=== PATIENT | male | born 1955 | race Caucasian/White ===

== ENCOUNTER → 2018-01-25 | Outpatient (CLI) | payer OTHER ==
[~2018-01-25] MED LIST: [UNRECOGNIZED DRUG - OTHER] PO
[2018-01-25 09:31] LABS: BASO ABS # 0.05 K/uL (0-0.2); EOS % 4.1 %; EOS ABS # 0.21 K/uL (0-0.5); HEMATOCRIT 40.9 % (42-52); HEMOGLOBIN 13.1 g/dL (14.0-18.0); IG# 0.01 K/uL (0.00-0.02); LYMPH % 30.2 %; LYMPH ABS # 1.56 K/uL (1.2-3.4); MEAN CELL VOLUME 87.8 fL (80-100); MEAN CORPUSCULAR HEMOGLOBIN 28.1 pg (25-34); MEAN PLATELET VOLUME 10.6 fL (7.4-10.4); MONO % 13.2 %; MONO ABS # 0.68 K/uL (0.11-0.59); NEUT % 51.3 %; NEUT ABS # 2.66 K/uL (1.4-6.5); PLATELET COUNT 205 K/uL (130-400); RED CELL DISTRIBUTION WIDTH CV 14.4 % (11.5-14.5); RED CELL DISTRIBUTION WIDTH SD 46.1 fL (36.4-46.3); WHITE BLOOD COUNT 5.17 K/uL (4.8-10.8)
[2018-01-25 10:30] LABS: ALBUMIN 3.9 gm/dl (3.4-5.0); ALT/SGPT 36 U/L (12-78); AST/SGOT 24 U/L (15-37); BLOOD UREA NITROGEN 19 mg/dl (7-18); CALCIUM 8.5 mg/dl (8.5-10.1); CARBON DIOXIDE 32 mmol/L (21-32); CREATININE 1.31 mg/dl (0.60-1.40); GLUCOSE 118 mg/dl (70-99); POTASSIUM 3.9 mmol/L (3.5-5.1); SODIUM 142 mmol/L (136-145)
[2018-01-25 10:40] LABS: ALKALINE PHOSPHATASE 68 U/L (45-117); CHOLESTEROL 145 mg/dl (0-200); LDL CHOLESTEROL CALCULATED 83 mg/dl; TOTAL PROTEIN 7.2 gm/dl (6.4-8.2)
== END | disposition home or self-care (01) ==
LOC: C.LAB1850 07:01
PROVIDERS: ATTEND Nurse Practitioner Adult Health
DX: Z13.220 Encounter for screening for lipoid disorders (principal); Z82.3 Family history of stroke; Z12.5 Encounter for screening for malignant neoplasm of prostate; R35.1 Nocturia

== ENCOUNTER 2023-03-26 07:16 | Inpatient (IN) ==
[2023-03-26] MEDS ORDERED: SODIUM CHLORIDE 0.9% 1000ML 1,000 ML IV STA (07:25)
--- NOTE | 2023-03-26 07:34 | Emergency Department Note ---
History of Present Illness General Chief complaint: Confusion Time Seen by Provider: 03/26/23 07:19 Source: patient, EMS and RN notes reviewed Mode of arrival: EMS Limitations: no limitations History of Present Illness This patient is a 68-year-old male who is brought in by EMS after being found by police [place] to the train track [place]. He apparently was confused he does answer all questions appropriately now his blood sugars greater than 500 and when asked him about this he says he does not take his medications because he cannot afford it. He said he fell and could not get up and laid there for he thinks 20 hours. He denies any injury and denies that he hit his head. He denies a loss of conscious no chest pain shortness of breath no recent fever chills or illness no focal numbness or weakness no nausea or vomiting. He feels like he has been drinking fluids is normal he does not drink alcohol or use drugs. He feels as if his mouth feels dry and that seems to be his only complaint at present. Home Medications Medication Instructions Recorded Confirmed Type No Known Home Medications 03/26/23 03/26/23 History Allergies Allergy/AdvReac Type Severity Reaction Status Date / Time primidone [From Mysoline] Allergy Verified 06/12/19 15:58 tamsulosin Allergy Verified 06/12/19 15:58 Past Med/Surg History Social History Smoking Status: Never smoker Second Hand Exposure: No; Do You Dip or Chew Tobacco: No; Tobacco Cessation Education Requested by Patient: No Hx Alcohol Use: Yes Alcohol type: beer Hx Substance Use: No Preferred Language: Welsh Rn Flight Required: No Beliefs That Will Affect Care: None Current Living Situation: Alone Other Information That Helps Us Care for You: No Feels Safe at Home: Yes Safety Concerns: Feels Safe At This Time Assistive Devices: None Immunizations: Past medical historytype 2 diabetes. Does not take medications due to financial issues Social history he drinks occasionally but has not had any recently denies drug use. Review of Systems A total of 10 systems reviewed and were otherwise negative Physical Exam Vital Signs Vital Signs - 24 hr 03/26/23 07:35 03/26/23 07:40 03/26/23 08:06 Temperature 37.1 C Temperature Source Oral Pulse Rate 100 H 105 H 90 Pulse Rate from SpO2 Sensor Respiratory Rate 20 24 Respiratory Effort / Characteristics Non-Labored Spontaneous Respiratory Depth Normal Blood Pressure 128/98 Blood Pressure Mean 108 Pulse Oximetry 99 99 Oxygen Delivery Method Room Air Room Air Sepsis Recent Fever Within 48 Hours No Sepsis New/Unexplained Change in Mental Status N/A Sepsis Action Taken by Nursing No Action Required 03/26/23 07:32 03/26/23 09:39 Temperature Temperature Source Pulse Rate 93 H 95 H Pulse Rate from SpO2 Sensor 96 H Respiratory Rate 16 19 Respiratory Effort / Characteristics Respiratory Depth Blood Pressure 105/59 L Blood Pressure Mean 74 Pulse Oximetry 96 97 Oxygen Delivery Method Room Air Room Air Sepsis Recent Fever Within 48 Hours Sepsis New/Unexplained Change in Mental Status Sepsis Action Taken by Nursing General: Well developed well nourished somewhat disheveled older male who appears alert and orient x3 and in no acute distress, breathing comfortably on room air. Normal speech HEENT: Normal cephalic atraumatic. Pupils are equal round and reactive to light. Extraocular movements are intact. Oropharynx is pink with dry mucous membranes. No swelling of the mouth lips or tongue. Neck: Supple with a midline trachea. No meningeal signs or stiffness, no JVD or bruits. No Stridor. Chest: Clear to auscultation bilaterally. No wheezes or rhonchi. No increased work of breathing. No trauma or crepitus or subcutaneous air Heart: Regular rate and rhythm without murmurs or gallops. Abdomen: Soft nontender, nondistended without rebound guarding or rigidity. No external signs of trauma Extremities: No cyanosis clubbing or edema. No calf tenderness or assymetry Spine/Back. Non tender to palpation. No CVA tenderness Skin: Good turgor without rashes. Neurologic exam: Cranial nerves two through 12 are intact. Motor and sensation are intact and symmetrical throughout. Course Administered Medications Sodium Chloride (Nss 1000ml) 1,000 mls @ 100 mls/hr IV .Q10H [facility] Stop: 04/25/23 11:29 Last Admin: 03/26/23 13:13 Dose: 100 mls/hr Documented By: JOSE MIGUEL Insulin Aspart (Insulin Aspart Per Unit Charge) 0 units SC ACHS OZIEL Stop: 04/25/23 11:59 Last Admin: 03/26/23 13:12 Dose: 8 units Documented By: JOSE MIGUEL Co-signed By: SML Discontinued Medications Sodium Chloride (Nss 1000ml) 1,000 mls @ 999 mls/hr IV .Q1H1M STA Stop: 03/26/23 08:25 Last Infusion: 03/26/23 08:59 Dose: 0 mls/hr Documented By: Admin: 03/26/23 07:40 Dose: 999 mls/hr Documented By: KATHARINE Sodium Chloride (Nss 1000ml) 1,000 mls @ 999 mls/hr IV .Q1H1M ONE Stop: 03/26/23 10:19 Last Infusion: 03/26/23 11:17 Dose: 0 mls/hr Documented By: Admin: 03/26/23 09:40 Dose: 999 mls/hr Documented By: KATHARINE Insulin Glargine (Lantus Per Unit Charge) 15 units SQ ONE ONE Stop: 03/26/23 13:01 Last Admin: 03/26/23 13:12 Dose: 15 units Documented By: JOSE MIGUEL Co-signed By: SML Insulin Human Regular (Novolin-R Insulin Per Unit Charge) 5 units SC NOW STA Stop: 03/26/23 08:48 Last Admin: 03/26/23 08:58 Dose: 5 units Documented By: KATHARINE Co-signed By: MT Insulin Human Regular (Novolin-R Insulin Per Unit Charge) 5 units IV NOW STA Stop: 03/26/23 11:07 Last Admin: 03/26/23 11:18 Dose: 5 units Documented By: KATHARINE Co-signed By: CHARY Pantoprazole Sodium (Pantoprazole 40 Mg Tab) 40 mg PO NOW STA Stop: 03/26/23 10:48 Last Admin: 03/26/23 11:18 Dose: 40 mg Documented By: KATHARINE Medical Decision Making Differential Diagnosis Fall, syncope, diabetic emergency, dehydration, rhabdo, electrolyte or metabolic abnormality, arrhythmia, cardiac disease, anemia Medical Records Attestation: I reviewed the patient's medical records. Home Medications Current Medication List: was personally reviewed by me Laboratory Data Attestation: I reviewed the patient's lab results. 03/26/23 07:40 03/26/23 07:40 Lab Results 03/26/23 03/26/23 03/26/23 Range/Units 07:22 07:29 07:40 WBC 10.57 (4.8-10.8) K/ul RBC 5.56 (4.70-6.10) M/uL Hgb 17.0 (14.0-18.0) g/dl Hct 49.7 (42.0-52.0) % MCV 89.4 (80.0-100.0) fL MCH 30.6 (25.0-34.0) pg MCHC 34.2 (32.0-36.0) g/dL RDW Std Deviation 40.0 (36.4-46.3) fL RDW Coeff of Tamika 12.3 (11.5-14.5) % Plt Count 246 (130-400) K/uL MPV 11.4 (9.4-12.4) fL Immature Gran % (Auto) 0.4 % Neut % (Auto) 83.9 % Lymph % (Auto) 6.1 % [place] % (Auto) 9.2 % Eos % (Auto) 0.0 % Baso % (Auto) 0.4 % Neut # (Auto) 8.88 H (1.40-6.50) K/uL Lymph # (Auto) 0.64 L (1.2-3.4) K/uL [place] # (Auto) 0.97 H (0.11-0.59) K/uL Eos # (Auto) 0.00 (0-0.50) K/uL Baso # (Auto) 0.04 (0-0.2) K/uL Immature Gran # (Auto) 0.04 (0.01-0.20) K/uL PT (9.0-12.0) Seconds INR (0.9-1.1) APTT (21.0-31.0) Seconds PTT Ratio VBG pH (7.36-7.41) VBG pCO2 (38-50) mmHg VBG pO2 mmHg VBG HCO3 mmol/L VBG O2 Saturation % VBG Base Excess mEq/L Sodium (136-145) mmol/L Potassium (3.5-5.1) mmol/L Chloride (98-107) mmol/L Carbon Dioxide (21-32) mmol/L Anion Gap (3-11) BUN (6-23) mg/dl Creatinine (0.6-1.4) mg/dl Est Cr Clr Drug Dosing ml/min Est GFR ( Amer) ml/min Est GFR (Non-Af Amer) ml/min BUN/Creatinine Ratio (10-20) Glucose (70-99(Fasting)) mg/dl POC Glucose 521 H* (70-99) mg/dl Calcium (8.6-10.3) mg/dl Total Bilirubin (0.2-1.0) mg/dl AST (13-39) U/L ALT (7-52) U/L Alkaline Phosphatase (34-104) U/L Total Creatine Kinase (30-223) U/L Troponin I High Sens (0-20) pg/ml Total Protein (6.0-8.3) gm/dl Albumin (3.4-5.0) gm/dl Globulin (2.5-4.0) gm/dl Albumin/Globulin Ratio (0.9-2) Lipase (11-82) U/L TSH (0.300-4.500) uIu/ml Urine Color Urine Appearance (Clear) Urine pH (4.5-7.5) Ur Specific [place] (1.000-1.030) Urine Protein (Negative) Urine Glucose (UA) (Negative) Urine Ketones (Negative) Urine Blood (Negative) Urine Nitrite (Negative) Urine Bilirubin (Negative) Urine Urobilinogen (Negative) Ur Leukocyte Esterase (Negative) Ethyl Alcohol mg/dL < 10.0 (<10.0) mg/dl SARS-CoV-2, RNA, NAAT (NEGATIVE) 03/26/23 03/26/23 03/26/23 Range/Units 07:40 07:40 07:40 WBC (4.8-10.8) K/ul RBC (4.70-6.10) M/uL Hgb (14.0-18.0) g/dl Hct (42.0-52.0) % MCV (80.0-100.0) fL MCH (25.0-34.0) pg MCHC (32.0-36.0) g/dL RDW Std Deviation (36.4-46.3) fL RDW Coeff of Tamika (11.5-14.5) % Plt Count (130-400) K/uL MPV (9.4-12.4) fL Immature Gran % (Auto) % Neut % (Auto) % Lymph % (Auto) % [place] % (Auto) % Eos % (Auto) % Baso % (Auto) % Neut # (Auto) (1.40-6.50) K/uL Lymph # (Auto) (1.2-3.4) K/uL [place] # (Auto) (0.11-0.59) K/uL Eos # (Auto) (0-0.50) K/uL Baso # (Auto) (0-0.2) K/uL Immature Gran # (Auto) (0.01-0.20) K/uL PT 10.3 (9.0-12.0) Seconds INR 0.9 (0.9-1.1) APTT 23.9 (21.0-31.0) Seconds PTT Ratio 0.8 VBG pH 7.35 L (7.36-7.41) VBG pCO2 47 (38-50) mmHg VBG pO2 33 mmHg VBG HCO3 26 mmol/L VBG O2 Saturation 60.3 % VBG Base Excess -0.2 mEq/L Sodium 140 (136-145) mmol/L Potassium 4.3 (3.5-5.1) mmol/L Chloride 104 (98-107) mmol/L Carbon Dioxide 24 (21-32) mmol/L Anion Gap 12 H (3-11) BUN 25 H (6-23) mg/dl Creatinine 1.27 (0.6-1.4) mg/dl Est Cr Clr Drug Dosing 62.0 ml/min Est GFR ( Amer) 66.4 ml/min Est GFR (Non-Af Amer) 57.3 ml/min BUN/Creatinine Ratio 19.7 (10-20) Glucose 556 H* (70-99(Fasting)) mg/dl POC Glucose (70-99) mg/dl Calcium 10.0 (8.6-10.3) mg/dl Total Bilirubin 0.5 (0.2-1.0) mg/dl AST 31 (13-39) U/L ALT 28 (7-52) U/L Alkaline Phosphatase 108 H (34-104) U/L Total Creatine Kinase 726 H (30-223) U/L Troponin I High Sens 16.7 (0-20) pg/ml Total Protein 7.5 (6.0-8.3) gm/dl Albumin 4.3 (3.4-5.0) gm/dl Globulin 3.2 (2.5-4.0) gm/dl Albumin/Globulin Ratio 1.3 (0.9-2) Lipase 54 (11-82) U/L TSH (0.300-4.500) uIu/ml Urine Color Urine Appearance (Clear) Urine pH (4.5-7.5) Ur Specific [place] (1.000-1.030) Urine Protein (Negative) Urine Glucose (UA) (Negative) Urine Ketones (Negative) Urine Blood (Negative) Urine Nitrite (Negative) Urine Bilirubin (Negative) Urine Urobilinogen (Negative) Ur Leukocyte Esterase (Negative) Ethyl Alcohol mg/dL (<10.0) mg/dl SARS-CoV-2, RNA, NAAT (NEGATIVE) 03/26/23 03/26/23 03/26/23 Range/Units 07:40 07:40 07:40 WBC (4.8-10.8) K/ul RBC (4.70-6.10) M/uL Hgb (14.0-18.0) g/dl Hct (42.0-52.0) % MCV (80.0-100.0) fL MCH (25.0-34.0) pg MCHC (32.0-36.0) g/dL RDW Std Deviation (36.4-46.3) fL RDW Coeff of Tamika (11.5-14.5) % Plt Count (130-400) K/uL MPV (9.4-12.4) fL Immature Gran % (Auto) % Neut % (Auto) % Lymph % (Auto) % [place] % (Auto) % Eos % (Auto) % Baso % (Auto) % Neut # (Auto) (1.40-6.50) K/uL Lymph # (Auto) (1.2-3.4) K/uL [place] # (Auto) (0.11-0.59) K/uL Eos # (Auto) (0-0.50) K/uL Baso # (Auto) (0-0.2) K/uL Immature Gran # (Auto) (0.01-0.20) K/uL PT (9.0-12.0) Seconds INR (0.9-1.1) APTT (21.0-31.0) Seconds PTT Ratio VBG pH (7.36-7.41) VBG pCO2 (38-50) mmHg VBG pO2 mmHg VBG HCO3 mmol/L VBG O2 Saturation % VBG Base Excess mEq/L Sodium (136-145) mmol/L Potassium (3.5-5.1) mmol/L Chloride (98-107) mmol/L Carbon Dioxide (21-32) mmol/L Anion Gap (3-11) BUN (6-23) mg/dl Creatinine (0.6-1.4) mg/dl Est Cr Clr Drug Dosing ml/min Est GFR ( Amer) ml/min Est GFR (Non-Af Amer) ml/min BUN/Creatinine Ratio (10-20) Glucose (70-99(Fasting)) mg/dl POC Glucose (70-99) mg/dl Calcium (8.6-10.3) mg/dl Total Bilirubin (0.2-1.0) mg/dl AST (13-39) U/L ALT (7-52) U/L Alkaline Phosphatase (34-104) U/L Total Creatine Kinase (30-223) U/L Troponin I High Sens (0-20) pg/ml Total Protein (6.0-8.3) gm/dl Albumin (3.4-5.0) gm/dl Globulin (2.5-4.0) gm/dl Albumin/Globulin Ratio (0.9-2) Lipase (11-82) U/L TSH 2.118 (0.300-4.500) uIu/ml Urine Color Yellow Urine Appearance Clear (Clear) Urine pH 5.0 (4.5-7.5) Ur Specific [place] 1.040 H (1.000-1.030) Urine Protein Negative (Negative) Urine Glucose (UA) 3+ H (Negative) Urine Ketones 1+ H (Negative) Urine Blood Negative (Negative) Urine Nitrite Negative (Negative) Urine Bilirubin Negative (Negative) Urine Urobilinogen Negative (Negative) Ur Leukocyte Esterase Negative (Negative) Ethyl Alcohol mg/dL (<10.0) mg/dl SARS-CoV-2, RNA, NAAT NEGATIVE (NEGATIVE) Imaging Data Attestation: I personally reviewed and interpreted this imaging study as follows: My Impression: Chest x-rayno acute infiltrate, failure, pneumothorax seen Head CTno hemorrhage or mass effect seen Radiologist's Impression: Chest X-Ray 03/26/23 07:25 SINGLE VIEW CHEST CLINICAL HISTORY: Atypical chest pain. FINDINGS: 2 AP, portable, upright chest radiographs are compared to study dated 09/02/2008. The cardiomediastinal silhouette is unremarkable. The lungs and pleural spaces are clear. No pneumothorax is seen. The bony thorax is grossly intact. IMPRESSION: No active disease in the chest. ACT 112: Negative or not required by law. Electronically signed by: Chuck Smyth M.D. 03/26/2023 8:[address] 03/26/23 07:25 CT head/brain wo con CLINICAL HISTORY: weakness Technique: Contiguous axial CT images of the head were acquired from the base of the skull to the vertex without intravenous contrast administration. Images were viewed in brain, subdural and bone windows. Automated dose lowering techniques and/or adjustment according to patient size were utilized for this exam. Comparison: Comparison is made to CT head 11/03/2007 Findings: Areas of decreased attenuation are present in the periventricular and subcortical white matter bilaterally consistent with small vessel ischemic disease. Generalized cerebral atrophy with commensurate enlargement of the ventricles, sulci, and cisterns is also present. There is no acute intracranial hemorrhage or evidence of acute territorial infarction. No shift of the midline structures, mass effect, or extra-axial abnormalities are shown. Atherosclerotic calcifications are present in the intracranial segments of the internal carotid arteries. Imaged portions of the paranasal sinuses and mastoid air cells are clear. The orbits appear normal. There are no acute fractures of the calvaria or scalp swelling. Old craniotomy changes are noted. Impression: No acute intracranial hemorrhage, no evidence of acute territorial infarction or other acute intracranial disease process. ACT 112: Negative or not required by law. Electronically signed by: Pete Hartman M.D. 03/26/2023 8:31 AM ECG Data Attestation: I personally reviewed and interpreted this ECG as follows: Indication: + weakness Rate (beats per minute): 96 Rhythm: + normal sinus ECG Intervals/blocks: + Normal QRS, + Normal QT and + Normal AK ECG [place]: + Normal ECG ST segments: + Normal ST segments ECG Findings: no PACs or no PVCs Comparison ECG Date: from (09/02/08) Change: no significant change MDM Narrative This patient comes in as described above. Was placed on air sampling and monitoring in room A3 although he is brought in with confusion. he seems to answer questions appropriately at this point. His mouth does appear to be dry his vital signs are otherwise stable he has no fever here and reports no fever at home IV X established was hydrated 1 L IV normal saline bolus. Multiple labs were obtained blood sugar was 521 and therefore I also ordered a VBG. He was felt to be at risk for rhabdo lay after laying on the ground for approximately 20 hours. A urine was ordered as well. He was placed on a air sampling and monitoring. EKG. chest x-ray. and also head CT was obtained given the concern for possible fall/tra brenden/confusion. He was reassessed frequently. He seems to doing much better however his blood sugar is very high so I did give him insulin 5 units subcutameous. His CK is also high at greater than 700 so he may have some mild rhabdomylesis. He has not been taking his medication and not 100% sure of what happened to him last night. I do think he needs to be admitted/observed for further fluids and treatment and evaluation. Continuous cardiac monitoring: An order was placed in EMR for continuous cardiac monitoring: Upon my evaluation patient noted to be normal sinus rhythm with rate of 80 Impression & Plan Hyperglycemia, Weakness, Acute dehydration, Rhabdomyolysis, Lab test negative for COVID-19 virus Discharge Plan Visit Data Chief Complaint: Confusion ED Provider: Candido Tomlinson Discharge Problem: Hyperglycemia, Weakness, Acute dehydration, Rhabdomyolysis, Lab test negative for COVID-19 virus Patient Disposition: Admitted As Inpatient Discharge Instructions Interventions: ED Discharge Assessment Last Done: 03/26/23 11:36
[2023-03-26 08:07] LABS: Basophils # (auto) 0.04 K/uL (0-0.2); Basophils % (auto) 0.4 %; Hematocrit (blood only) 49.7 % (42.0-52.0); Immature Granulocytes # (auto) 0.04 K/uL (0.01-0.20); Immature Granulocytes % (auto) 0.4 %; Lymphocytes # (auto) 0.64 K/uL (1.2-3.4); Lymphocytes % (auto) 6.1 %; Mean Corpuscular Hemoglobin 30.6 pg (25.0-34.0); Mean Corpuscular Hgb Conc 34.2 g/dL (32.0-36.0); Mean Corpuscular Volume 89.4 fL (80.0-100.0); Mean Platelet Volume 11.4 fL (9.4-12.4); Monocytes # (auto) 0.97 K/uL (0.11-0.59); Monocytes % (auto) 9.2 %; Neutrophils # (auto) 8.88 K/uL (1.40-6.50); Neutrophils % (auto) 83.9 %; Platelet Count 246 K/uL (130-400); RDW Coefficient of Variation 12.3 % (11.5-14.5); Red Blood Count 5.56 M/uL (4.70-6.10); White Blood Count 10.57 K/ul (4.8-10.8)
[2023-03-26 08:09] LABS: Base Excess VBG -0.2 mEq/L; HCO3 VBG 26 mmol/L; Oxygen Saturation VBG 60.3 %; PCO2 VBG 47 mmHg (38-50); PO2 VBG 33 mmHg; pH VBG 7.35 (7.36-7.41)
[2023-03-26 08:16] LABS: Appearance Urine Clear (Clear); Bilirubin Urine Negative (Negative); Blood Urine Negative (Negative); Color Urine Yellow; Glucose Urine UA 3+ (Negative); Ketones Urine 1+ (Negative); Leukocyte Esterase Urine Negative (Negative); Nitrite Urine Negative (Negative); Protein Urine Negative (Negative); Urobilinogen Urine Negative (Negative)
--- NOTE | 2023-03-26 08:22 | XRay Report ---
SINGLE VIEW CHEST CLINICAL HISTORY: Atypical chest pain. FINDINGS: 2 AP, portable, upright chest radiographs are compared to study dated 09/02/2008. The cardi omediastinal silhouette is unremarkable. The lungs and pleural spaces are clear. No pneumothorax is s een. The bony thorax is grossly intact. IMPRESSION: No active disease in the chest. ACT 112: Negative or not required by law. Electronically signed by: Chuck Smyth M.D. 03/26/2023 8:20 AM
[2023-03-26 08:28] LABS: Albumin Level 4.3 gm/dl (3.4-5.0); Bilirubin,Total 0.5 mg/dl (0.2-1.0); Potassium 4.3 mmol/L (3.5-5.1)
--- NOTE | 2023-03-26 08:33 | CT Scan Report ---
CT head/brain wo con CLINICAL HISTORY: weakness Technique: Contiguous axial CT images of the head were acquired from the base of the skull to the [place] without intravenous contrast administration. Images were viewed in brain, subdural and bone [facility]. Automated dose lowering techniques and/or adjustment according to patient size were utilized for this exam. Comparison: Comparison is made to CT head 11/03/2007 Findings: Areas of decreased attenuation are present in the periventricular and subcortical white matter bilate rally consistent with small vessel ischemic disease. Generalized cerebral atrophy with commensurate e nlargement of the ventricles, sulci, and cisterns is also present. There is no acute intracranial hem orrhage or evidence of acute territorial infarction. No shift of the midline structures, mass effect, or extra-axial abnormalities are shown. Atherosclerotic calcifications are present in the intracran ial segments of the internal carotid arteries. Imaged portions of the paranasal sinuses and mastoid air cells are clear. The orbits appear normal. There are no acute fractures of the calvaria or scalp swelling. Old craniotomy changes are noted. Impression: No acute intracranial hemorrhage, no evidence of acute territorial infarction or other acute intracra nial disease process. ACT 112: Negative or not required by law. Electronically signed by: Pete Hartman M.D. 03/26/2023 8:31 AM
[2023-03-26 08:42] LABS: INR 0.9 (0.9-1.1); Partial Thromboplastin Ratio 0.8; Partial Thromboplastin Time 23.9 Seconds (21.0-31.0); Prothrombin Time 10.3 Seconds (9.0-12.0)
[2023-03-26] MEDS ORDERED: NovoLIN-R INSULIN PER UNIT CHARGE SC STA (08:47)
[2023-03-26 08:49] LABS: Albumin Globulin Ratio 1.3 (0.9-2); BUN Creatinine Ratio 19.7 (10-20); Est GFR (African American) 66.4 ml/min; Est GFR (Non-African American) 57.3 ml/min; Globulin 3.2 gm/dl (2.5-4.0); Total Protein 7.5 gm/dl (6.0-8.3); Troponin I High Sensitivity 16.7 pg/ml (0-20)
[2023-03-26] MEDS ORDERED: SODIUM CHLORIDE 0.9% 1000ML 1,000 ML IV ONE (09:19)
[2023-03-26] MEDS ORDERED: DEXTROSE 50% 50 ML SYRINGE IV PRN (10:24)
[2023-03-26] MEDS ORDERED: PHARMACY GLYCEMIC MGMT CONSULT PRN (10:24)
[2023-03-26] MEDS ORDERED: GLUCOSE 10 TAB/TUBE PO PRN (10:24)
[2023-03-26] MEDS ORDERED: GLUCAGON FOR INJ 1 MG VIAL SQ PRN (10:24)
[2023-03-26] MEDS ORDERED: CARBOHYDRATES FOR HYPOGLYCEMIA PO PRN (10:24)
[2023-03-26] MEDS ORDERED: GLUCOSE 40% GEL 15 GM TUBE PO PRN (10:24)
--- NOTE | 2023-03-26 10:25 | History & Physical Report ---
Date of Service March 26, 2023 Assessment & Plan (1) Hyperglycemia: Plan: -Admit to med/tele -Currently stable -Found to be hyperglycemic with BSG in the 500's on arrival to the ED -Patient noted to have slight AG of 12 with 1+ ketones in his urine but bicarb is 24 and VBG without significant acidosis -Has been unable to afford medications -S/P 2L NSS and 5 units SQ novolog in the ED -Repeat BSG on admission is 394 -Coordinating with Pharmacy as Glycemic consult has been placed >Will give 5 units IV regular human insulin now >Start q2h BSG checks until his BSg is stable, goal is 110-160 >Start CF of 35 and CR of 12 q2h for now >Pharmacy will adjust lantus dosing later today when they see how he responds to his initial therapy -Will give another 1L NSS now x 1 bag to avoid additional glucose in LR or Normosol -Will obtain repeat BMP, mag, and ABG this afternoon to ensure he is correcting adequately -AM Hgb A1c -Will hold chemical DVT PPX until tomorrow to ensure he is without bleeding with his recent fall and history of intracranial hemorrhage -AM CBC, CMP, Mag, PT/INR (2) Fall: Plan: -Patient fell last evening [place] train [place] -Has some tenderness to palpation over the thoracic spine but otherwise without pain -CT head and CXR negative -Will obtain Xray of the thoracic spine to rule out fracture -PT/OT consults placed (3) Dizziness: Plan: -Patient reports a long history of dizziness with changing positions, was at least partly responsible for his fall yesterday -Denies spinning vision, unilateral hearing loss, or change in baseline tinnitus -CT head negative, no acute focal neuro defects compared to his baseline -Will continue to monitor on tele for arrhythmias, noted to have PVC's on tele -Will obtain TTE and orthostatic vitals -Fall precautions, PT/OT consults (4) Elevated CK: Plan: -Initial CK noted to be 726 -Kidney function appears at baseline -Likely due to be down on the ground for 20+ hours since his fall yesterday -Continue IV hydration, will repeat ck level q6h until it reaches a plateau -Continue to monitor intake/output and renal function (5) Weakness: Plan: -Likely multifactorial including being on the ground for 20+ hours, dehydration, and hyperglycemia -CT head negative for acute findings and CXR without acute sings -No signs/symptoms of acute infection, TSH WNL -Continue to monitor for improvement with adequate hydration and correction of hyperglycemia -PT/OT consults placed (6) Diabetes mellitus type 2, uncontrolled: Plan: -See hyperglycemia -Pharmacy glycemic consult placed (7) Benign familial tremor: Plan: -States it has been getting worse of the past few years -Was previously on a medication but does not remember which one -Will hold medications for tremor at this time until he is stable, could consider starting something tomorrow if BP is stable (8) Benign prostatic hyperplasia with urinary obstruction and other lower urinary tract symptoms: Plan: -Denies current issues with urination -Monitor intake/output q6h for now with prn bladder scan Plan The patient was discussed with Dr. Hernández at the time of the admission History of Present Illness Chief Complaint: Confusion, hyperglycemia Primary Care Provider: AGUILA Sebastian is a 68 year old male with a PMH significant for DM II, GERD, BPH, benign essential tremor, and previous hemorrhagic stroke S/P Craniotomy at [facility] in 2006 who presented to the [facility] ED via EMS after being found down outside, confusion, and hyperglycemia. In the ED vitals were stable. Labs were significant for a lymphopenia of 0.64, glucose of 556, AG of 12 with bicarb of 24, CK of 726, alcohol level < 10, and covid 19 negative. Chest xray was read as "No active disease in the chest.". CT of the head/brain wo con was read as "No acute intracranial hemorrhage, no evidence of acute territorial infarction or other acute intracranial disease process.". Prior to admission the patient was given 5 units SQ regular insulin, given 1L NSS, and started on another 1L NSS. At the time of the exam the patient was sitting in bed in no acute distress, he does not appear confused during my exam. He states that he currently lives in section 8 housing in [place] and has been living there for approximately the past 2 years. he confirms his PMH and states that he has not been on medications as he cannot afford them at this time. He states that he wanted to get fresh air and exercise yesterday so he went for a walk on the [place]. Yesterday evening, while, walking, he went to turn around to start walking back home because it was getting dark. While turning he became dizzy and fell, he denies hitting his head or losing consciousness. He denies having spinning with his vision at this time, he states that he often gets dizzy while changing positions. He states that he became dizzy again earlier in the ED when he got out of bed to use the restroom. He denies having the sensation of unilateral ear fullness or tinnitus with the dizziness. He does have constant ringing in his ears at baseline. We discussed code status, he wishes to be a full code and for his sister to make medical decisions for him if he cannot make them himself. Please refer to Dr. Hernández's attesation for any changes to the treatment Allergies Allergy/AdvReac Type Severity Reaction Status Date / Time rice Allergy Unknown Difficulty Verified 03/27/23 17:03 Breathing primidone [From Mysoline] Allergy Verified 06/12/19 15:58 tamsulosin Allergy Verified 06/12/19 15:58 Home Medications Medication Instructions Recorded Confirmed Type No Known Home Medications 03/26/23 03/26/23 History Past Med/Surg History Social History Smoking Status: Never smoker Second Hand Exposure: No; Do You Dip or Chew Tobacco: No; Hx Alcohol Use: Yes Alcohol type: beer Hx Substance Use: No Preferred Language: Liberian Communication Ability: Effective Chlorinator Required: No Beliefs That Will Affect Care: None Current Living Situation: Alone Feels Safe at Home: Yes Assistive Devices: Cane Review of Systems Review of Systems: All systems reviewed & are unremarkable except as noted in HPI & below Physical Exam Physical Exam: Physical Exam: General: In no acute distress, stated age, chronically ill appearing, poor hygiene, non-toxic appearing HEENT: Normocephalic, atraumatic, no scleral icterus, pupils around round, symmetrical, and reactive to light, moist mucus membranes, trachea midline, no thyromegaly Chest/Pulm: No respiratory distress, symmetrical chest expansion, clear breath sounds throughout Cardiac: regular rate, irregular rhythm, no murmurs noted Abdomen: Negative for ascites and bruising, normoactive bowel sounds, soft, non-tender to palpation throughout Musculoskeletal: No acute signs of trauma on inspection and palpation of the head, neck, cervical spine, lumbar spine, and BL upper/lower extremities, patient with tenderness to palpation over the thoracic spine without signs of crepitus or step offs Extremities: Radial, dorsalis pedis, and posterior tibial pulses are intact and symmetrical, no edema noted in the BL LE's Skin: Warm, dry, no rashes , lesions, or scars noted Neuro: Alert and oriented to person, place, month, year, and president, no focal defects, CN II-XII tested and intact, symmetrical strength in the BL upper and lower extremities, baseline resting tremor noted Psych: No acute distress, calm and cooperative during the exam Results & Data Results & Data Vital Signs (Past 12 Hours) Vital Signs Temp Pulse Resp BP Pulse Ox O2 Del Method 03/26/23 09:39 95 H 19 105/59 L 97 Room Air 03/26/23 07:32 93 H 16 96 Room Air 03/26/23 08:06 90 24 99 Room Air 03/26/23 07:40 37.1 C 105 H 20 128/98 99 Room Air 03/26/23 07:35 100 H Laboratory Results Abnormal lab results 03/26/23 03/26/23 03/26/23 Range/Units 07:22 07:40 07:40 Neut # (Auto) 8.88 H (1.40-6.50) K/uL Lymph # (Auto) 0.64 L (1.2-3.4) K/uL [place] # (Auto) 0.97 H (0.11-0.59) K/uL VBG pH (7.36-7.41) Anion Gap 12 H (3-11) BUN 25 H (6-23) mg/dl Glucose 556 H* (70-99(Fasting)) mg/dl POC Glucose 521 H* (70-99) mg/dl Alkaline Phosphatase 108 H (34-104) U/L Total Creatine Kinase 726 H (30-223) U/L Ur Specific [place] (1.000-1.030) Urine Glucose (UA) (Negative) Urine Ketones (Negative) 03/26/23 03/26/23 03/26/23 Range/Units 07:40 07:40 10:25 Neut # (Auto) (1.40-6.50) K/uL Lymph # (Auto) (1.2-3.4) K/uL [place] # (Auto) (0.11-0.59) K/uL VBG pH 7.35 L (7.36-7.41) Anion Gap (3-11) BUN (6-23) mg/dl Glucose (70-99(Fasting)) mg/dl POC Glucose 394 H* (70-99) mg/dl Alkaline Phosphatase (34-104) U/L Total Creatine Kinase (30-223) U/L Ur Specific [place] 1.040 H (1.000-1.030) Urine Glucose (UA) 3+ H (Negative) Urine Ketones 1+ H (Negative) Diagnostic Findings Chest X-Ray 03/26/23 07:25 SINGLE VIEW CHEST CLINICAL HISTORY: Atypical chest pain. FINDINGS: 2 AP, portable, upright chest radiographs are compared to study dated 09/02/2008. The cardiomediastinal silhouette is unremarkable. The lungs and pleural spaces are clear. No pneumothorax is seen. The bony thorax is grossly intact. IMPRESSION: No active disease in the chest. ACT 112: Negative or not required by law. Electronically signed by: Chuck Smyth M.D. 03/26/2023 8:[address] 03/26/23 07:25 CT head/brain wo con CLINICAL HISTORY: weakness Technique: Contiguous axial CT images of the head were acquired from the base of the skull to the vertex without intravenous contrast administration. Images were viewed in brain, subdural and bone windows. Automated dose lowering techniques and/or adjustment according to patient size were utilized for this exam. Comparison: Comparison is made to CT head 11/03/2007 Findings: Areas of decreased attenuation are present in the periventricular and subcortical white matter bilaterally consistent with small vessel ischemic disease. Generalized cerebral atrophy with commensurate enlargement of the ventricles, sulci, and cisterns is also present. There is no acute intracranial hemorrhage or evidence of acute territorial infarction. No shift of the midline structures, mass effect, or extra-axial abnormalities are shown. Atherosclerotic calcifications are present in the intracranial segments of the internal carotid arteries. Imaged portions of the paranasal sinuses and mastoid air cells are clear. The orbits appear normal. There are no acute fractures of the calvaria or scalp swelling. Old craniotomy changes are noted. Impression: No acute intracranial hemorrhage, no evidence of acute territorial infarction or other acute intracranial disease process. ACT 112: Negative or not required by law. Electronically signed by: Pete Hartman M.D. 03/26/2023 8:31 AM ECG Additional Comments: Normal sinus rhythm Low voltage QRS Borderline ECG When compared with ECG of 02-SEP-2008 17:55, Vent. rate has increased BY 32 BPM Code Status & VTE Plan Code Status Full code VTE Prophylaxis Plan VTE Prophylaxis will be ordered: Yes Supervising Physician Co-Signing Physician Notes During face to face encounter, I obtained a brief physical examination, history of present illness I discussed discharge plan of care with EDMAR [place]. I reviewed above note and agree with it except for the following: Patient admitted with uncontrolled diabetes. Patient has not seen a PCP for over 4 years. Will rehydrate patient and control his diabetes with insulin. Will monitor. PG Care Time/CCT Total # of Minutes Spent Total Time Spent with Patient: Total time spent is greater than 50% in coordination of care (as documented) at patient's floor/unit and/or counseling patient: [place] [address] INT INP/OBS CARE 3/75MIN Patient Type New Medical Decision Making Moderate Complexity Diagnoses Hyperglycemia R73.9 Fall W19.XXXA Dizziness R42 Elevated CK R74.8 Weakness R53.1 Diabetes mellitus type 2, uncontrolled E11.65 Benign familial tremor G25.0 Benign prostatic hyperplasia with urinary obstruction and other lower urinary tract symptoms N40.1; N13.8
[2023-03-26] MEDS ORDERED: INSULIN ASPART PER UNIT CHARGE SC STA (10:47)
[2023-03-26] MEDS ORDERED: PANTOprazole 40 MG TAB PO STA (10:47)
[2023-03-26] MEDS ORDERED: INSULIN ASPART PER UNIT CHARGE SC SCH (11:00)
[2023-03-26] MEDS ORDERED: NovoLIN-R INSULIN PER UNIT CHARGE IV STA (11:06)
[2023-03-26] MEDS ORDERED: SODIUM CHLORIDE 0.9% 1000ML 1,000 ML IV SCH (11:30)
[2023-03-26] MEDS ORDERED: ACETAMINOPHEN 325 MG TAB PO PRN (11:55)
[2023-03-26] MEDS ORDERED: LANTUS PER UNIT CHARGE SQ ONE ×2 (13:00→21:00)
--- NOTE | 2023-03-26 13:06 | Pharmacy Report ---
Pharmacy Glycemic Short Note 2 - Date of Service March 26, 2023 - Glycemic Short BSG Results (Last 24 hours): 03/26/23 03/26/23 03/26/23 07:22 07:40 10:25 Glucose 556 H* POC Glucose 521 H* 394 H* 03/26/23 12:13 Glucose POC Glucose 297 H OUTPATIENT ANTIDIABETIC REGIMEN: * n/a HbA1c ordered for 03/27/23 ASSESSMENT: * TH is a 68 year old male who presented to ED via EMS after being found down outside * Patient reportedly got dizzy and feel while walking along train tracks * His BSG at presentation was 556 mg/dL, anion gap of 12 (however, serum bicarbonate is 24), and pH of 7.35 * Hyperglycemia has improved significantly with two IV regular insulin boluses (5 units x 2) * BSG at present is 297 mg/dL * Diet ordered on admission * Given uncertainty in insulin needs - will give ~0.2 unit/kg initial basal * Will allow for some mild hyperglycemia today and prioritize hypoglycemia prevention PLAN FOR INPATIENT GLYCEMIC CONTROL: * Basal insulin * Lantus 15 units SQ x 1 (~0.2 unit/kg) * Lantus 0-15 units SC HS to provide dose up to weight-based stress of 2 * Bolus insulin * NovoLog per scale ACHS or Q6hrs while NPO * Goal Range: Low 120 mg/dL - High 150 mg/dL * Correction Factor: 20 mg/dL/unit * Nutritional / Prandial insulin per carb ratio of 1 unit per 7 grams CHO consumed * ,04 checks with same parameters
[2023-03-26] MEDS: INSULIN ASPART PER UNIT CHARGE SC SCH ×4 (13:12→23:45)
--- NOTE | 2023-03-26 13:24 | XRay Report ---
THORACIC SPINE 3 VIEWS HISTORY: fall, thoracic back pain COMPARISON: None. FINDINGS: There is no fracture. No subluxation. Paravertebral soft tissues are unremarkable. Mild de generative disc disease throughout the thoracic spine. IMPRESSION: No fracture or subluxation within the thoracic spine. ACT 112: Negative or not required by law. Electronically signed by: Federico Dee M.D. 03/26/2023 1:22 PM
[2023-03-26 14:15] LABS: Base Excess ABG -1.7 mEq/L (-9-1.8); HCO3 ABG 23 mmol/L (19-24); PCO2 ABG 38 mmHg (35-46); PO2 ABG 74 mmHg (80-95); pH ABG 7.39 (7.35-7.45)
[2023-03-26 14:22] LABS: Allen Test POS (Pos)
[2023-03-26 14:53] LABS: BUN Creatinine Ratio 16.9 (10-20); Calcium 8.4 mg/dl (8.6-10.3); Creatinine Clr Calc Pharmacy 60.6 ml/min; Est GFR (African American) 64.5 ml/min; Est GFR (Non-African American) 55.7 ml/min; Potassium 3.7 mmol/L (3.5-5.1)
--- NOTE | 2023-03-26 16:25 | XCELERA ---
[id number]
--- NOTE | 2023-03-26 18:21 | Electrocardiogram Report ---
Test Reason : Blood Pressure : / mmHG Vent. Rate : 096 BPM Atrial Rate : 096 BPM P-R Int : 178 ms QRS Dur : 074 ms QT Int : 328 ms P-R-T Axes : 079 009 050 degrees QTc Int : 414 ms Normal sinus rhythm Low voltage QRS Borderline ECG When compared with ECG of 02-SEP-2008 17:55, Vent. rate has increased BY 32 BPM Confirmed by Terrence Anthony ([id number]) on 03/26/2023 6:21:25 PM Referred By: REFERRED SELF Confirmed By:Ben Anthony
[2023-03-26] MEDS ORDERED: LACTATED RINGER'S 1,000 ML IV SCH (20:30)
[2023-03-26] MEDS ORDERED: LANTUS PER UNIT CHARGE SQ SCH (21:00)
[2023-03-27 02:07] LABS: Albumin Globulin Ratio 1.5 (0.9-2); Albumin Level 3.4 gm/dl (3.4-5.0); BUN Creatinine Ratio 20.4 (10-20); Bilirubin,Total 0.5 mg/dl (0.2-1.0); Calcium 8.1 mg/dl (8.6-10.3); Creatinine Clr Calc Pharmacy 69.7 ml/min; Est GFR (African American) 76.4 ml/min; Globulin 2.2 gm/dl (2.5-4.0); Magnesium 2.1 mg/dl (1.7-2.4); Potassium 3.6 mmol/L (3.5-5.1); Total Protein 5.6 gm/dl (6.0-8.3)
[2023-03-27 04:17] LABS: Basophils # (auto) 0.03 K/uL (0-0.2); Basophils % (auto) 0.4 %; Eosinophils # (auto) 0.18 K/uL (0-0.50); Eosinophils % (auto) 2.6 %; Hematocrit (blood only) 38.7 % (42.0-52.0); Immature Granulocytes # (auto) 0.02 K/uL (0.01-0.20); Immature Granulocytes % (auto) 0.3 %; Lymphocytes # (auto) 1.83 K/uL (1.2-3.4); Mean Corpuscular Hemoglobin 30.7 pg (25.0-34.0); Mean Corpuscular Hgb Conc 33.6 g/dL (32.0-36.0); Mean Corpuscular Volume 91.3 fL (80.0-100.0); Monocytes # (auto) 0.74 K/uL (0.11-0.59); Monocytes % (auto) 10.5 %; Neutrophils # (auto) 4.25 K/uL (1.40-6.50); Neutrophils % (auto) 60.2 %; Platelet Count 159 K/uL (130-400); RDW Coefficient of Variation 12.8 % (11.5-14.5); RDW Standard Deviation 41.5 fL (36.4-46.3); Red Blood Count 4.24 M/uL (4.70-6.10); White Blood Count 7.05 K/ul (4.8-10.8)
[2023-03-27] MEDS: INSULIN ASPART PER UNIT CHARGE SC SCH ×5 (04:21→20:31)
[2023-03-27 07:03] LABS: Estimated Average Glucose 390 mg/dl; Hemoglobin A1C 15.2 % (4.5-5.6)
[2023-03-27] MEDS: PANTOprazole 40 MG TAB PO SCH (07:58)
[2023-03-27] MEDS ORDERED: LANTUS PER UNIT CHARGE SQ ONE ×4 (08:00→21:00)
--- NOTE | 2023-03-27 08:28 | Pharmacy Report ---
Pharmacy Glycemic Short Note 2 - Date of Service March 27, 2023 - Glycemic Short BSG Results (Last 24 hours): 03/26/23 03/26/23 03/26/23 07:40 10:25 12:13 Glucose 556 H* POC Glucose 394 H* 297 H 03/26/23 03/26/23 03/26/23 14:02 16:34 19:58 Glucose 324 H* POC Glucose 276 H 210 H 03/26/23 03/27/23 03/27/23 23:23 01:08 04:00 Glucose 127 H POC Glucose 173 H 111 H 03/27/23 07:38 Glucose POC Glucose 127 H OUTPATIENT ANTIDIABETIC REGIMEN: * n/a HbA1c: 15.2% (03/27/23) ASSESSMENT: 03/27/23: * HbA1c has resulted at 15.2% - given new diabetes diagnosis, will consult CDE for assistance w/ outpatient transition * Excellent BSG downward trend yesterday from 521 to 173 mg/dL * Fasting BSG of 127 mg/dL this morning * Patient received 62 units of insulin (25 units of basal, 10 units of IV regular insulin, and 27 units of prandial/correctional bolus) * Had originally planned to convert to once daily basal to facilitate transition to discharge, however, in light of downward BSG trend will stick with BID basal today to allow for increase/decrease this evening based on today's trend 03/26/23: * TH is a 68 year old male who presented to ED via EMS after being found down outside * Patient reportedly got dizzy and feel while walking [place] train tracks * His BSG at presentation was 556 mg/dL, anion gap of 12 (however, serum bicarbonate is 24), and pH of 7.35 * Hyperglycemia has improved significantly with two IV regular insulin boluses (5 units x 2) * BSG at present is 297 mg/dL * Diet ordered on admission * Given uncertainty in insulin needs - will give ~0.2 unit/kg initial basal * Will allow for some mild hyperglycemia today and prioritize hypoglycemia prevention PLAN FOR INPATIENT GLYCEMIC CONTROL: * Basal insulin * Lantus 10-15 units SC BID today * Consider once daily basal starting tomorrow morning * Bolus insulin * NovoLog per scale ACHS or Q6hrs while NPO * Goal Range: Low 110 mg/dL - High 140 mg/dL * Correction Factor: 25 mg/dL/unit * Nutritional / Prandial insulin per carb ratio of 1 unit per 8 grams CHO consumed
[2023-03-27 16:43] LABS: Hemoglobin 14.9 g/dl (14.0-18.0); Mean Corpuscular Hemoglobin 30.7 pg (25.0-34.0); Mean Corpuscular Hgb Conc 33.9 g/dL (32.0-36.0); Mean Corpuscular Volume 90.7 fL (80.0-100.0); Mean Platelet Volume 11.4 fL (9.4-12.4); Platelet Count 201 K/uL (130-400); RDW Coefficient of Variation 12.8 % (11.5-14.5); RDW Standard Deviation 41.7 fL (36.4-46.3); Red Blood Count 4.85 M/uL (4.70-6.10); White Blood Count 5.66 K/ul (4.8-10.8)
[2023-03-27 17:01] LABS: BUN Creatinine Ratio 18.8 (10-20); Calcium 8.8 mg/dl (8.6-10.3); Creatinine Clr Calc Pharmacy 67.3 ml/min; Est GFR (African American) 73.3 ml/min; Est GFR (Non-African American) 63.2 ml/min; Potassium 3.9 mmol/L (3.5-5.1)
--- NOTE | 2023-03-27 22:41 | Hospitalist Progress Note ---
Date of Service March 27, 2023 Assessment & Plan (1) Hyperglycemia: Plan: -Admit to med/tele -Currently stable _anion gap closed. INsulin better controlled. Patient currently refusing discharge with insulin. Explaind that cost should not be an issue as it will only be around 35 dollars a month. His hopsital stay will also be covered by his insurance. Plan is to monitor his blood work for another day. If hemoglobin stabilized (could be a dilutional drop), and sugars are acceptable, patient can be discharged. (2) Fall: Plan: -Patient fell last evening [place] train [place] -Has some tenderness to palpation over the thoracic spine but otherwise without pain -CT head and CXR negative -Will obtain Xray of the thoracic spine to rule out fracture :negative -PT/OT consults placed (3) Dizziness: Plan: -Patient reports a long history of dizziness with changing positions, was at least partly responsible for his fall yesterday -Denies spinning vision, unilateral hearing loss, or change in baseline tinnitus -CT head negative, no acute focal neuro defects compared to his baseline -Will continue to monitor on tele for arrhythmias, noted to have PVC's on tele -Will obtain TTE and orthostatic vitals -Fall precautions, PT/OT consults improved. (4) Elevated CK: Plan: -Initial CK noted to be 726 -Kidney function appears at baseline -Likely due to be down on the ground for 20+ hours since his fall yesterday -Continue IV hydration, will repeat ck level q6h until it reaches a plateau -Continue to monitor intake/output and renal function (5) Weakness: Plan: -Likely multifactorial including being on the ground for 20+ hours, dehydration, and hyperglycemia -CT head negative for acute findings and CXR without acute sings -No signs/symptoms of acute infection, TSH WNL -Continue to monitor for improvement with adequate hydration and correction of hyperglycemia -PT/OT consults placed (6) Diabetes mellitus type 2, uncontrolled: Plan: -See hyperglycemia -Pharmacy glycemic consult placed (7) Benign familial tremor: Plan: -States it has been getting worse of the past few years -Was previously on a medication but does not remember which one -Will hold medications for tremor at this time until he is stable, could consider starting something tomorrow if BP is stable (8) Benign prostatic hyperplasia with urinary obstruction and other lower urinary tract symptoms: Plan: -Denies current issues with urination -Monitor intake/output q6h for now with prn bladder scan Plan Hallucinations: May be metabolic encephalopathy. However, strongly consider patient may have a mental illness. will consult psych prior to discharge. Admission and Anticipated Discharge Date Admission Date: March 26, 2023 Subjective Patient reports feeling better. He is asking about discharge. Patient reports he was having hallucinations prior to arrival, seeing animals that were not there. Review of Systems Review of Systems: All systems reviewed & are unremarkable except as noted in HPI & below Physical Exam Physical Exam: General: In no acute distress, stated age, chronically ill appearing, poor hygiene, non-toxic appearing HEENT: Normocephalic, atraumatic Chest/Pulm: No respiratory distress, symmetrical chest expansion, clear breath sounds throughout Cardiac: regular rate, irregular rhythm, no murmurs noted Abdomen: soft, non-tender to palpation throughout Extremities: Radial, dorsalis pedis, and posterior tibial pulses are intact and symmetrical, no edema noted in the BL LE's Skin: Warm, dry, no rashes , lesions, or scars noted Neuro: Alert and oriented to person, place, month, year, and president, no focal defects, CN II-XII tested and intact, symmetrical strength in the BL upper and lower extremities, baseline resting tremor noted Psych: No acute distress, calm and cooperative during the exam Results & Data Results & Data Vital Signs (Past 12 Hours) Vital Signs Temp Pulse Resp BP BP Pulse Ox O2 Del Method 03/27/23 19:29 36.7 C 69 18 100/58 L 96 Room Air 03/27/23 15:58 36.6 C 88 20 96/63 L 95 Room Air 03/27/23 11:21 36.6 C 69 16 106/62 97 Room Air PG Care Time/CCT Total # of Minutes Spent Total Time Spent with Patient: Total time spent is greater than 50% in coordination of care (as documented) at patient's floor/unit and/or counseling patient: Coding Level of Care Code 82615 SUB INP/OBS CARE 3/50MIN Diagnoses Hyperglycemia R73.9 Fall W19.XXXA Dizziness R42 Elevated CK R74.8 Weakness R53.1 Diabetes mellitus type 2, uncontrolled E11.65 Benign familial tremor G25.0 Benign prostatic hyperplasia with urinary obstruction and other lower urinary tract symptoms N40.1; N13.8
[2023-03-28 07:56] LABS: Basophils # (auto) 0.04 K/uL (0-0.2); Basophils % (auto) 0.9 %; Eosinophils # (auto) 0.24 K/uL (0-0.50); Eosinophils % (auto) 5.2 %; Hematocrit (blood only) 39.3 % (42.0-52.0); Hemoglobin 13.1 g/dl (14.0-18.0); Immature Granulocytes # (auto) 0.01 K/uL (0.01-0.20); Immature Granulocytes % (auto) 0.2 %; Lymphocytes # (auto) 1.58 K/uL (1.2-3.4); Lymphocytes % (auto) 33.9 %; Mean Corpuscular Hemoglobin 30.4 pg (25.0-34.0); Mean Corpuscular Hgb Conc 33.3 g/dL (32.0-36.0); Mean Corpuscular Volume 91.2 fL (80.0-100.0); Mean Platelet Volume 11.4 fL (9.4-12.4); Monocytes # (auto) 0.55 K/uL (0.11-0.59); Monocytes % (auto) 11.8 %; Neutrophils # (auto) 2.24 K/uL (1.40-6.50); Platelet Count 164 K/uL (130-400); RDW Coefficient of Variation 12.6 % (11.5-14.5); RDW Standard Deviation 41.7 fL (36.4-46.3); Red Blood Count 4.31 M/uL (4.70-6.10); White Blood Count 4.66 K/ul (4.8-10.8)
[2023-03-28 08:17] LABS: Albumin Globulin Ratio 1.4 (0.9-2); Albumin Level 3.2 gm/dl (3.4-5.0); BUN Creatinine Ratio 17.3 (10-20); Bilirubin,Total 0.5 mg/dl (0.2-1.0); Calcium 8.1 mg/dl (8.6-10.3); Creatinine Clr Calc Pharmacy 75.8 ml/min; Est GFR (African American) 84.5 ml/min; Est GFR (Non-African American) 72.9 ml/min; Globulin 2.3 gm/dl (2.5-4.0); Potassium 3.6 mmol/L (3.5-5.1); Total Protein 5.5 gm/dl (6.0-8.3)
[2023-03-28] MEDS: PANTOprazole 40 MG TAB PO SCH (08:27)
[2023-03-28] MEDS: INSULIN ASPART PER UNIT CHARGE SC SCH ×2 (08:27→12:09)
--- NOTE | 2023-03-28 11:53 | Psychiatric Consultation ---
Date of Consultation March 28, 2023 Impression / Recommendations Impression Diagnostically, visual hallucinations in the absence of any other psychiatric symptoms would be highly atypical for a primary psychotic or mood disorder. Rather his intermittent visual hallucinations seem most likely driven by delirium-type process from periods of hyperglycemia or possibly TBI sequelae from his previous subdural hematoma. Lewy Body dementia process is possible but he denies any recent memory issues and while he demonstrated periods of poor insight during this admission (requesting to leave prior to medical clearance) he seems well oriented and can speak to recent events and his home environment and how he meets his basic needs well. His reports of at times binge drinking also suggest these visual hallucinations could be possible sequelae of alcohol withdrawal episodes but he denies association with timing of alcohol use nor any other symptoms of alcohol withdrawal in the past. Educated on risks of alcohol withdrawal and motivation interviewing regarding alcohol use. He is not deemed in need of any current psychiatric medications nor would they be indicated at this time. Agree with plan for improved blood sugar control, if hallucinations persist after this then could consider further suellen body dementia workup in the outpatient setting if other symptoms emerge. (1) Hyperglycemia: (2) Episodes of formed visual hallucinations: Plan -Safe for discharge from psychiatric standpoint -Would not start any psychiatric medications at this time -Agree with plan for improved blood glucose control Psych History Identifying Data 68 yo man with a history of chronic subdural hematoma in 2010, DM II, GERD, familial benign essential tremor admitted medically for hyperglycemia and after a fall. Psychiatry consulted for recommendations regarding visual hallucinations. Chief Complaint "I lost my balance". History of Present Illness Parveen describes going for a walk prior to admission and falling and struggling to get back up. After falling he saw a dog coming toward him but then it disappeared. he reports having a few different visual hallucinations over the last few months. All have been visual hallucinations of animals and occur once every few months. He is always able to reality-test them as he states "they always go away" when he tries to look more closely. He saw a dog most recently and previously a flock of ducks and a lizard. He is not bothered by them. He denies any previous history of visual hallucinations nor auditory hallucinations nor paranoia nor delusions. Denies any history of psychosis. Reports history of intermittent depression. He currently denies any hopelessness nor SI. States he sometimes feels depressed and then will "drink a 6 pack" and feels better. He is not interested in any psychiatric medication, outpatient therapy nor case management. He now longer drives and walks to the nearby grocery store and pharmacy to get what he needs and uses a "carry cart" to bring his items home. Endorses drinking alcohol "only on the holidays and my birthday" and will then drink a 6 pack of beer. He thinks he may have experienced some memory changes after his subdural hematoma but denies any recent memory changes or issues. Reviewed his reason for admission and he understands his blood sugar was high and that recommendation is for use of insulin. He states he has been given "many books" about how to better manage this and feels he will be able to "once I read the books". He is a little worried about the cost of insulin but states that someone from the hospital is reaching out to his pharmacy to ensure it will be affordable. He denies any other concerns nor questions. Allergies Allergy/AdvReac Type Severity Reaction Status Date / Time rice Allergy Unknown Difficulty Verified 03/27/23 17:03 Breathing primidone [From Mysoline] Allergy Verified 06/12/19 15:58 tamsulosin Allergy Verified 06/12/19 15:58 Home Medications Medication Instructions Recorded Confirmed Type blood sugar diagnostic (OneTouch #100 ea 03/28/23 Rx Verio test strips) blood sugar diagnostic (OneTouch #100 ea 03/28/23 Rx Verio test strips) blood-glucose meter (OneTouch #1 ea 03/28/23 Rx Verio Flex Start kit) glyburide 5 mg tablet 2.5 mg PO DAILY #30 tabs 03/28/23 Rx lancets 30 gauge #100 ea 03/28/23 Rx lancets 30 gauge #100 ea 03/28/23 Rx metformin 500 mg tablet,extended 500 mg PO DAILY #30 tabs 03/28/23 Rx release 24 hr Patient History Social History Smoking Status: Never smoker Second Hand Exposure: No; Do You Dip or Chew Tobacco: No; Hx Alcohol Use: Yes Alcohol type: beer Hx Substance Use: No Preferred Language: B[place] Communication Ability: Effective 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 Required: No Beliefs That Will Affect Care: None Current Living Situation: Alone Feels Safe at Home: Yes Assistive Devices: Cane Physical Exam Psychiatric: Orientation: alert and oriented x 3 Apperance: appropriately dressed and appropriately groomed Eye Contact: good eye contact Motor Behavior: no abnormal motor movements Speech: normal rate/rhythm/volume of speech Affect: + constricted affect Mood: no depressed mood and no anxious mood Thought Process: linear/logical thought process and + concrete thought process Thought Content: reality based without delusions Suicidal Thoughts: denies suicidal thoughts Homicidal Thoughts: denies homicidal thoug hts Hallucinations: no auditory hallucinations and no visual hallucinations Cognition: recent memory grossly intact, remote memory grossly intact, attention grossly intact and language grossly intact Insight: + limited insight Judgment: + limited judgement Vital Signs (Past 24 Hours): Last Vital Signs Temp 36.5 C 03/28/23 07:49 Pulse 59 L 03/28/23 07:49 Resp 16 03/28/23 07:49 BP 104/70 03/28/23 07:49 Pulse Ox 95 03/28/23 07:49 O2 Del Method Room Air 03/28/23 07:49 Review of Systems All systems reviewed & are unremarkable except as noted in HPI & below Results & Data (PSY) Medications Administered Insulin Aspart (Insulin Aspart Per Unit Charge) 0 units SC ACHS OZIEL Stop: 04/25/23 11:59 Last Admin: 03/28/23 08:27 Dose: 7 units Documented By: CHEYANNE Co-signed By: DEVANTE Admin: 03/27/23 20:31 Dose: 1 units Documented By: NAMAN Co-signed By: EKATERINA Admin: 03/27/23 17:17 Dose: 9 units Documented By: CHEYANNE Co-signed By: JOSE MIGUEL Admin: 03/27/23 11:58 Dose: 12 units Documented By: JOSE MIGUEL Co-signed By: BECKA Admin: 03/27/23 07:54 Dose: 5 units Documented By: JOSE MIGUEL Co-signed By: BECKA Admin: 03/26/23 20:34 Dose: 3 units Documented By: NAMAN Co-signed By: JAN Admin: 03/26/23 17:03 Dose: 14 units Documented By: JOSE MIGUEL Co-signed By: BECKA Admin: 03/26/23 13:12 Dose: 8 units Documented By: JOSE MIGUEL Co-signed By: BECKA Pantoprazole Sodium (Pantoprazole 40 Mg Tab) 40 mg PO DAILY OZIEL Stop: 04/26/23 08:59 Last Admin: 03/28/23 08:27 Dose: 40 mg Documented By: Admin: 03/27/23 07:58 Dose: 40 mg Documented By: JOSE MIGUEL Coding Level of Care Code 53391 IN/OBS CONSULT LVL 3,45M Diagnoses Hyperglycemia R73.9 Episodes of formed visual hallucinations R44.1 Time Spent (min) 50
--- NOTE | 2023-03-28 12:13 | Discharge Summary ---
Date of Service March 28, 2023 Admission HPI Per Admitting Provider Parveen Sebastian is a 68 year old male with a PMH significant for DM II, GERD, BPH, benign essential tremor, and previous hemorrhagic stroke S/P Craniotomy at [facility] in 2006 who presented to the [facility] ED via EMS after being found down outside, confusion, and hyperglycemia. In the ED vitals were stable. Labs were significant for a lymphopenia of 0.64, glucose of 556, AG of 12 with bicarb of 24, CK of 726, alcohol level < 10, and covid 19 negative. Chest xray was read as "No active disease in the chest.". CT of the head/brain wo con was read as "No acute intracranial hemorrhage, no evidence of acute territorial infarction or other acute intracranial disease process.". Prior to admission the patient was given 5 units SQ regular insulin, given 1L NSS, and started on another 1L NSS. At the time of the exam the patient was sitting in bed in no acute distress, he does not appear confused during my exam. He states that he currently lives in [place] [address] in [place] and has been living there for approximately the past 2 years. he confirms his PMH and states that he has not been on medications as he cannot afford them at this time. He states that he wanted to get fresh air and exercise yesterday so he went [place] a walk on the train tracks. Yesterday evening, while, walking, he went to turn around to start walking back home because it was getting dark. While turning he became dizzy and fell, he denies hitting his head or losing consciousness. He denies having spinning with his vision at this time, he states that he often gets dizzy while changing positions. He states that he became dizzy again earlier in the ED when he got out of bed to use the restroom. He denies having the sensation of unilateral ear fullness or tinnitus with the dizziness. He does have constant ringing in his ears at baseline. We discussed code status, he wishes to be a full code and for his sister to make medical decisions for him if he cannot make them himself. Please refer to Dr. Hernández's attesation for any changes to the treatment Principal Diagnosis Found down, Hyperglycemia, DM2 Discharge Exam General: A&Ox3. NAD. Cooperative. HEENT: Atraumatic, normocephalic. Pulm: CTAB A&P. -wheezes, -rales, -rhonchi. Symmetrical chest rise. No increased work of breathing. No respiratory distress. Cardiac: RRR, -mrg. Radial pulses intact and symmetrical. Abdominal: Nontender, nondistended, soft. BS present. Extremities: Warm, dry. Moves all extremities equally Discharge Data Allergies Allergy/AdvReac Type Severity Reaction Status Date / Time rice Allergy Unknown Difficulty Verified 03/27/23 17:03 Breathing primidone [From Mysoline] Allergy Verified 06/12/19 15:58 tamsulosin Allergy Verified 06/12/19 15:58 Consultations 03/26/23 09:35 ED Decision to Admit Stat 03/27/23 16:53 Consult Psychiatry Routine Ordered Studies 03/26/23 07:25 CT head/brain wo con Stat Diabetes Follow up Diabetes Follow-up Needed for HgbA1c >9% Hospital Course (1) Hyperglycemia: Parveen is a 68-year-old male who was presented after he was found down and was found to be hyperglycemic greater than 500, volume depleted, with A1c of 15.2. He improved clinically with fluids and insulin, and had no signs of ongoing infection. He was initially recommended for combo therapy with insulin given his A1c greater than 10, patient did not wish to be on insulin and refused this as outpatient. Patient was started on metformin with goal of up titration to 1 g twice daily, and glyburide 2.5 mg to be uptitrated as outpatient. He was agreeable to this, and daily BSG checks all materials were sent to pharmacy. Return precautions including BSG greater than 300 were discussed. Patient did have a somewhat flat affect and had endorsed intermittent hallucinations previously, was seen by psych and was not felt to have a likely primary psychosis but may have had some hallucinations in the setting of alcohol use. Pharmacotherapy was not recommended. Patient did not wish for rehab, was able to get up and go day of discharge, and was discharged to PCP follow-up. 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 Was able to pass "get up and go "test and walk 15 feet with pivot at time of discharge (3) Dizziness: -Patient reports a long history of dizziness with changing positions, was at least partly responsible for his fall yesterday -Denies spinning vision, unilateral hearing loss, or change in baseline tinnitus -CT head negative, no acute focal neuro defects compared to his baseline -No arrhythmias noted while inpatient improved. Echo: Grade 1 diastolic dysfunction, LV SF normal, RVSP normal, moderate aortic root dilation (4) Elevated CK: -Initial CK noted to be 726 -Kidney function appears at baseline -Likely due to be down on the ground for 20+ hours since his fall yesterday -Improving with fluids, renal function at baseline. May follow-up as (5) Weakness: -Likely multifactorial including being on the ground for 20+ hours, dehydration, and hyperglycemia -CT head negative for acute findings and CXR without acute sings -No signs/symptoms of acute infection, TSH WNL -PT/OT initially recommending rehab. Patient wished for discharge home, was able to "get up and go "they have just (6) Diabetes mellitus type 2, uncontrolled: See above (7) Benign familial tremor: -States it has been getting worse of the past few years -Was previously on a medication but does not remember which one (8) Benign prostatic hyperplasia with urinary obstruction and other lower urinary tract symptoms: -Denies current issues with urination -Monitor intake/output q6h for now with prn bladder scan Plan Hallucinations: Suspected metabolic encephalopathy. Patient denies this at time of discharge, offered psych consult but patient preferred to return home Total Time Total Time Spent Total Time Spent (In Minutes): Time spend day of discharge 35 minutes including direct patient care, documentation, review of labs and images, and coordination of care. Discharge Plan Discharge Items Patient Disposition: Home - Self-Care Reason For Visit: FOUND DOWN, HYPERGLYCEMIA, WEAKNESS Discharge Diagnosis: Hyperglycemia, DM2 Activity: Resume your previous activity Non-emergency contact: Primary Care Provider Call non-emergency contact if: you have any medication questions and your symptoms worsen Follow-up/Referrals: Onur Alex CRNP [Nurse Practitioner] - 04/05/23 10:20 am (04/05/2023 at 10:20 am hospital follow up Establish Care appointment June 20, 2023 at 7:05 am. ) PCP,NO [Primary Care Provider] - Diet: Carb Consistent or DM2 Addtl Attending Provider Instructions: You were seen in the hospital after being found down. You were found to have an extremely high blood sugar which improved with insulin. Your A1c, a 3-month average of your blood sugar, was extremely high. Goal A1c is less than 7, your A1c was 15.2. It is been recommended that you be started on insulin therapy in addition to metformin with close follow-up to a primary care provider for adjustments. Did not wish to be treated with insulin regardless of cost, and glyburide the oral medicine was substituted instead A follow-up appointment has been scheduled for you with Jose Wright on 04/05/2023. You have been prescribed and antidiabetic medicine, glyburide. please take glyburide 2.5 mg by mouth daily. Similar to insulin this is a risk of hypoglycemia. If you feel lightheaded or dizzy please check your blood sugar, and if you have low blood sugars please drink juice and contact your primary care provider for recommendations You have been prescribed an antidiabetes medicine, metformin. Please take metformin 500 mg extended release daily. You should have blood work performed at your primary care provider's checkup on 04/05/2023. You are found to have elevated muscle enzymes from laying on the ground. These were improving at time of discharge, and your kidney function was normal. Please drink plenty of water, ideally around 8 glasses of water per day. You to have this level rechecked at your primary care follow-up to make sure it has normalized If you develop any new or worsening symptoms including fever, chills, sweats, chest pain, chest pressure, difficulty breathing, uncontrolled nausea/vomiting, rash, wheezing, passing out or nearly passing out, bleeding, black/bloody bowel movements, or other new or concerning symptoms please call your primary care physician at the number above, or call 911 for re-evaluation in the emergency department if you are very concerned. Pending Studies at Discharge: No Stand-Alone Forms: [employer] Smoking Cessation Medications and DC Order Prescriptions: New glyburide 5 mg tablet 2.5 mg PO DAILY Qty: 30 0RF metformin 500 mg tablet extended release 24 hr 500 mg PO DAILY Qty: 30 0RF (DME) blood-glucose meter [OneTouch Verio Flex Start] Kit See Rx Instructions .Route Qty: 1 0RF Rx Instructions: As directed (DME) OneTouch Verio test strips Strip See Rx Instructions .Route Qty: 100 0RF Rx Instructions: As directed (DME) lancets 30 gauge misc See Rx Instructions .Route Qty: 100 0RF Rx Instructions: As directed (DME) OneTouch Verio test strips Strip See Rx Instructions .Route Qty: 100 0RF Rx Instructions: check BSG once daily (DME) lancets 30 gauge misc See Rx Instructions .Route Qty: 100 0RF Rx Instructions: check BSG once daily Discharge Orders: Discharge Order (Routine); Ordered 03/28/23 Ordered By: Nolan Santos Admission Data Admit Date/Time: 03/26/23 10:24 Attending Provider: Nolan Santos Admit Provider: Jose David Hernández Primary Care Provider: PCP,NO Other Providers: Jose David Hernández ; Juliane Zambrano ; Dee Dee Thomson ; Lucien Lucio Other Interventions: Discharge Summary Assessment (RN) Last Done: 03/28/23 14:30 Coding Level of Care Code 31326 INP/OBS DISCH >30 MIN Diagnoses Hyperglycemia R73.9 Fall W19.XXXA Dizziness R42 Elevated CK R74.8 Weakness R53.1 Diabetes mellitus type 2, uncontrolled E11.65 Benign familial tremor G25.0 Benign prostatic hyperplasia with urinary obstruction and other lower urinary tract symptoms N40.1; N13.8
[2023-03-28] MEDS ORDERED: LANTUS PER UNIT CHARGE SQ SCH (12:30)
== END 2023-03-28 16:38 | disposition home or self-care (01) | DRG 637 ==
LOC: ED 07:16 → 2W 10:24 → SUATTDRO 10:24 → 2W 11:36

== ENCOUNTER 2025-08-22 12:11 | Inpatient (IN) ==
[2025-08-22 13:42] LABS: Hematocrit (blood only) 45.5 % (42.0-52.0); Hemoglobin 15.8 g/dL (14.0-18.0); Immature Granulocytes # (auto) 0.03 K/uL (0.01-0.20); Immature Granulocytes % (auto) 0.5 %; Mean Corpuscular Hemoglobin 29.8 pg (25.0-34.0); Mean Corpuscular Volume 85.8 fL (80.0-100.0); Platelet Count 236 K/uL (130-400); RDW Standard Deviation 38.4 fL (36.4-46.3); Red Blood Count 5.30 M/uL (4.70-6.10); White Blood Count 6.24 K/ul (4.8-10.8)
--- NOTE | 2025-08-22 13:45 | XRay Report ---
XR chest 1V portable HISTORY: 70 years-old Male neuro deficit, acute stroke suspected COMPARISON: Chest CT 02/21/2025 TECHNIQUE: AP view of the chest FINDINGS: Cardiomediastinal and hilar silhouettes are within normal limits. No pneumothorax, pleural effusion, airspace consolidation or pulmonary edema. Degenerative changes of the shoulders and spine. IMPRESSION: No acute process of the chest. ACT 112: Negative or not required by law. The above report was generated using voice recognition software. It may contain grammatical, syntax o r spelling errors. Electronically signed by: Brandon Simental M.D. 08/22/2025 1:43 PM
[2025-08-22] MEDS: SODIUM CHLORIDE 0.9% 1,000 ML IV ONE (13:59)
[2025-08-22 14:01] LABS: Alanine Aminotransferase 15.0 U/L (7-52); Albumin Globulin Ratio 1.4 (0.9-2); Albumin Level 4.4 gm/dl (3.4-5.0); Alkaline Phosphatase 105.0 U/L (34-104); Anion Gap 9.0 (3-11); Bilirubin,Total 0.5 mg/dl (0.2-1.0); Blood Urea Nitrogen 17.0 mg/dl (6-23); Calcium 9.2 mg/dl (8.6-10.3); Carbon Dioxide 23.0 mmol/L (21-32); Chloride 106.0 mmol/L (98-107); Creatinine Clr Calc Pharmacy 77.3 ml/min; Globulin 3.1 gm/dl (2.5-4.0); Glucose 369.0 mg/dl (70-99(Fasting)); Magnesium 2.1 mg/dl (1.7-2.4); Potassium 4.0 mmol/L (3.5-5.1); Sodium 138.0 mmol/L (136-145); Total Protein 7.5 gm/dl (6.0-8.3)
[2025-08-22 14:05] LABS: Appearance Urine Clear (Clear); Glucose Urine UA 3+ (Negative)
[2025-08-22 14:14] LABS: INR 1.0 (0.9-1.1); Partial Thromboplastin Time 24 Seconds (21-31); Prothrombin Time 10.2 Seconds (9.0-12.0)
--- NOTE | 2025-08-22 14:20 | Emergency Department Note ---
Impression & Plan Episodes of formed visual hallucinations, Alcohol use disorder in remission, Hyperglycemia due to type 2 diabetes mellitus, Dehydration ED Provider Note NAME: HEATHER JJ AGE: 70 SEX: M : 1955 ARRIVES VIA: Ambulance INFORMANT: Patient ED PROVIDER(S): Joe Pulido MD CHIEF COMPLAINT: Visual hallucinations PLAN: Disposition: Admit MEDICAL DECISION MAKING: The patient is a 70-year-old gentleman with a past medical history of visual hallucinations, type 2 diabetes, hyperlipidemia, BPH, neuropathy, history of alcohol abuse in remission who presents to the emergency department via EMS for evaluation of visual hallucinations where the patient had called 911 because he was seeing a woman in his apartment who would then hide in the wall and he describes the woman as a projection sent from his upstairs neighbors. He reports he contacted 911 because he wanted them to take her with them. He reports when they arrived she hid in the wall again. Patient denies any current alcohol use. When it is suggested that his symptoms may be visual hallucinations which he sees and others do not, he maintains that the woman is real. On my evaluation the patient no distress, afebrile with stable vital signs. He appears clinically dry. He continues to endorse visual hallucinations. He exhibits no focal extremity weakness. He is not tremulous. No past-pointing. EOMI. No nystamgus. PEARRL. EKG without overt acute ischemia. CXR negative for acute cardiopulmonary process per my personal preliminary review/interpretation. WBC, hemoglobin and platelets within normal limits. Glucose initially 369 however chemistry without metabolic acidosis. Electrolytes LFTs unremarkable. Osmolality 309 consistent with the patient's clinically dry appearance. LFTs unremarkable. High-sensitivity troponin 9.4, within normal limits. UA with ketones consistent with the patient's dehydration but no evidence of infection. Urine duction was negative. Medical alcohol was undetectable. CT of the head and CT of the head and neck were negative for ICH, ischemia or severe narrowing occlusion of large vessels. Given the patient's severity of visual hallucinations which are manifesting themselves and disturbance of EMS services patient was referred to the hospital service for further management. Patient was treated with IV fluid hydration and IV thiamine. Case was discussed with Dr. Cerna, [facility] [place], who will evaluate the patient for admission. Further management per admitting team. Triage Nursing notes reviewed and agree them. Prior/external medical records reviewed Vital Signs: reviewed Differential diagnosis: Infection, dehydration, metabolic abnormality, hypo/hyperglycemia, electrolyte disturbance, anemia, hypoxia, cardiac sources, intracerebral event, toxicologic, neurologic, as well as other pathologies. ER treatment provided: See below. Diagnostics interpreted by me: ECG: Normal sinus rhythm with sinus arrhythmia, 66 bpm, no ectopy, no overt ST elevation or depression, QTc 368 QRS 70. Cardiac Monitoring: An order for continuous cardiac monitoring was placed and demonstrated Normal sinus rhythm with sinus arrhythmia, 66 bpm, no ectopy. Laboratory studies: See below Imaging studies: See below Consultation(s): Dr. Cerna, [facility] [place]. HPI: Per MDM. ROS: See above HPI for pertinent positives & negatives. A total of 10 systems reviewed and were otherwise negative. VITALS:See Below PHYSICAL EXAMINATION: GENERAL: Awake, alert, unkempt-appearing, in no distress HENT: Normocephalic, atraumatic. Oropharynx with dry mucous membranes and otherwise unremarkable. EYES: Normal conjunctiva. Sclera non-icteric. EOMI. No nystamgus. PEARRL. NECK: Supple. No nuchal rigidity. FROM. No JVD. RESPIRATORY: Clear to auscultation. CARDIAC: Regular rate, normal rhythm. Extremities warm and well perfused. Pulses equal. ABDOMEN: Soft, non-distended. No tenderness to palpation. No rebound or guarding. No masses. MUSCULOSKELETAL: Chest examination reveals no tenderness. The back is symmetrical on inspection without obvious abnormality. There is no CVA tenderness to palpation. No joint edema. LOWER EXTREMITIES: Calves are equal size bilaterally and non-tender. No edema. No discoloration. NEURO: Cranial nerves II-XII grossly intact. No focal motor deficits noted. Endorses visual hallucinations. No tremors or asterixis. No past-pointing. SKIN: No rash or jaundice noted. Joe Pulido MD Past Med/Surg History Problem List (Updated 08/22/25 @ 21:47 by Joe Pulido MD) Dehydration (Acute) Hyperglycemia due to type 2 diabetes mellitus (Acute) Shuffling gait (Chronic) Alcohol use disorder in remission (Chronic) BPH associated with nocturia (Chronic) Type 2 diabetes mellitus with diabetic neuropathy, unspecified (Chronic) Hyperlipidemia (Chronic) Tinea pedis (Chronic) Sensorineural hearing loss (SNHL) of both ears (Chronic) Benign familial tremor (Chronic) Episodes of formed visual hallucinations (Acute) Tinnitus of right ear (Chronic) Medical History Diabetic foot ulcer Syncope and collapse History of falling Personal history of other diseases of the nervous system and sense organs Laceration without foreign body of scalp, subsequent encounter Rhabdomyolysis Surgical History History of craniotomy Family History Mother Stroke Father Stroke Sister Breast cancer Denies family history of Ovarian cancer Prostate cancer Myocardial infarction Colorectal cancer Cancer Social History Smoking Status: Former smoker Tobacco Type: Cigarettes Second Hand Exposure: Yes; Do You Dip or Chew Tobacco: No; Hx Alcohol Use: No Hx Substance Use: No Preferred Language: [place] Communication Ability: Effective Visual Impairment: No Limitations Hearing Ability: Hard of Hearing Public Works Supervisor Required: No Beliefs That Will Affect Care: None marital status: Single Current Living Situation: Alone current occupational status: unemployed How many Children do You have: 0 Feels Safe at Home: Yes Childhood Exposure to Second-Hand Smoke: Yes (mother) Diet: regular Diet Comment: does not follow a diet during the past year weight has: remained stable Physical Activity Frequency: Does not Exercise Assistive Devices: Cane, Hospital Bed and Walker Allergies Allergies Allergy/AdvReac Type Severity Reaction Status Date / Time rice Allergy Severe WILD RICE Verified 08/22/25 15:49 PER PT----Difficulty Breathing Home Meds Home Medications Medication Instructions Recorded Confirmed insulin glargine 100 unit/mL (3 10 unit subcut DIRECTED 08/22/25 08/22/25 mL) subcutaneous pen (Lantus Solostar U-100 Insulin) Previous Rx's Medication Instructions Recorded blood sugar diagnostic (OneTouch #100 ea 03/28/23 Verio test strips) blood-glucose meter (OneTouch #1 ea 03/28/23 Verio Flex Start kit) lancets 30 gauge #100 ea 03/28/23 tamsulosin 0.4 mg capsule 0.4 mg PO DAILY #30 caps 09/19/24 atorvastatin 20 mg tablet 20 mg PO DAILY #90 tabs 09/22/24 empagliflozin 10 mg tablet 10 mg PO DAILY #30 tabs 01/05/25 glyburide 5 mg tablet 5 mg PO DAILY #30 tabs 02/25/25 metformin 500 mg tablet,extended 1,000 mg (2 x 500 mg) PO BID #60 02/25/25 release 24 hr tabs thiamine HCl (vitamin B1) 100 mg 200 mg (2 x 100 mg) PO BID #60 tabs 02/25/25 tablet Results & Data (ED) Vital Signs Vital Signs - 24 hr 08/22/25 11:56 08/22/25 11:56 08/22/25 14:36 Temperature 36.5 C 36.5 C Temperature Source Oral Oral Pulse Rate 86 Pulse Rate [Right Brachial] 86 74 Pulse Rate from SpO2 Sensor Pulse Rhythm Regular Pulse Rhythm [Right Brachial] Regular Pulse Strength Normal Pulse Strength [Right Brachial] Normal Respiratory Rate 20 20 18 Respiratory Effort / Characteristics Non-Labored Non-Labored Respiratory Depth Normal Normal Respiratory Pattern Regular Regular Blood Pressure 90/52 L Blood Pressure [Right Arm] 90/52 L 133/76 Blood Pressure Mean 64 Blood Pressure Mean [Right Arm] 64 95 Blood Pressure Position Sitting Blood Pressure Position [Right Arm] Sitting Pulse Oximetry 99 99 97 Oxygen Delivery Method Room Air Room Air Room Air Sepsis Recent Fever Within 48 Hours No Sepsis New/Unexplained Change in Mental Status N/A Sepsis Action Taken by Nursing No Action Required 08/22/25 15:00 08/22/25 15:00 08/22/25 15:30 Temperature Temperature Source Pulse Rate 70 78 Pulse Rate [Right Brachial] Pulse Rate from SpO2 Sensor 73 Pulse Rhythm Pulse Rhythm [Right Brachial] Pulse Strength Pulse Strength [Right Brachial] Respiratory Rate 14 17 Respiratory Effort / Characteristics Respiratory Depth Respiratory Pattern Blood Pressure 126/75 131/76 Blood Pressure [Right Arm] Blood Pressure Mean 93 94 Blood Pressure Mean [Right Arm] Blood Pressure Position Blood Pressure Position [Right Arm] Pulse Oximetry 97 Oxygen Delivery Method Room Air Sepsis Recent Fever Within 48 Hours Sepsis New/Unexplained Change in Mental Status Sepsis Action Taken by Nursing Laboratory Data Attestation: I reviewed the patient's lab results. 08/22/25 12:45 08/22/25 12:45 Lab Results 08/22/25 08/22/25 08/22/25 Range/Units 12:39 12:45 13:34 WBC 6.24 (4.8-10.8) K/ul RBC 5.30 (4.70-6.10) M/uL Hgb 15.8 (14.0-18.0) g/dL POC Hgb (14.0-18.0) g/dl Hct 45.5 (42.0-52.0) % POC Hct (42-52) % MCV 85.8 (80.0-100.0) fL MCH 29.8 (25.0-34.0) pg MCHC 34.7 (32.0-36.0) g/dL RDW Std Deviation 38.4 (36.4-46.3) fL RDW Coeff of Tamika 12.4 (11.5-14.5) % Plt Count 236 (130-400) K/uL MPV 11.1 (9.4-12.4) fL Immature Gran % (Auto) 0.5 % Neut % (Auto) 58.4 % Lymph % (Auto) 28.0 % Bent % (Auto) 10.4 % Eos % (Auto) 1.9 % Baso % (Auto) 0.8 % Neut # (Auto) 3.64 (1.40-6.50) K/uL Lymph # (Auto) 1.75 (1.20-3.40) K/uL Bent # (Auto) 0.65 H (0.11-0.59) K/uL Eos # (Auto) 0.12 (0.00-0.50) K/uL Baso # (Auto) 0.05 (0.00-0.20) K/uL Immature Gran # (Auto) 0.03 (0.01-0.20) K/uL PT 10.2 (9.0-12.0) Seconds INR 1.0 (0.9-1.1) APTT 24 (21-31) Seconds PTT Ratio 0.9 POC Sodium (135-144) mmol/L Sodium 138 (136-145) mmol/L POC Potassium (3.3-5.0) mmol/L Potassium 4.0 (3.5-5.1) mmol/L POC Chloride (101-112) mmol/L Chloride 106 (98-107) mmol/L Carbon Dioxide 23 (21-32) mmol/L POC Total CO2 (24-31) mmol/L Anion Gap 9 (3-11) POC Anion Gap (16-25) mmol/L POC BUN (7-18) mg/dl BUN 17 (6-23) mg/dl Creatinine 0.93 (0.6-1.4) mg/dl POC Creatinine (0.6-1.3) mg/dl Est Cr Clr Drug Dosing 77.3 ml/min eGFR 87.79 BUN/Creatinine Ratio 18.3 (10-20) Glucose 369 H* (70-99(Fasting)) mg/dl POC Glucose (70-99) mg/dl POC Glucose (other) (70-99) mg/dl Osmolality 309 H (280-300) mOsm/kg Calcium 9.2 (8.6-10.3) mg/dl POC Ioniz Calcium Mary (1.12-1.32) mmol/l Magnesium 2.1 (1.7-2.4) mg/dl Total Bilirubin 0.5 (0.2-1.0) mg/dl AST 13 (13-39) U/L ALT 15 (7-52) U/L Alkaline Phosphatase 105 H (34-104) U/L Troponin I High Sens 9.4 (0-20) pg/ml Total Protein 7.5 (6.0-8.3) gm/dl Albumin 4.4 (3.4-5.0) gm/dl Globulin 3.1 (2.5-4.0) gm/dl Albumin/Globulin Ratio 1.4 (0.9-2) Vitamin B12 517 (180-914) pg/ml TSH 4.429 (0.300-4.500) uIu/ml Urine Color Yellow Urine Appearance Clear (Clear) Urine pH 6.5 (4.5-7.5) Ur Specific [place] 1.042 H (1.000-1.030) Urine Protein Negative (Negative) Urine Glucose (UA) 3+ H (Negative) Urine Ketones Trace H (Negative) Urine Blood Negative (Negative) Urine Nitrite Negative (Negative) Urine Bilirubin Negative (Negative) Urine Urobilinogen Negative (Negative) Ur Leukocyte Esterase Negative (Negative) Urine Comment Urine Opiates Screen Neg (Neg) Ur Methadone, Qual Neg (Neg) Urine Fentanyl Screen Neg (Neg) Urine Barbiturates Neg (Neg) Ur Phencyclidine (PCP) Neg (Neg) U Amphetamin/Meth Scrn Neg (Neg) MDMA (Ecstasy) Screen Neg (Neg) U Benzodiazepines Scrn Neg (Neg) Ur Cocaine Metabolite Neg (Neg) U Marijuana (THC) Screen Neg (Neg) Ethyl Alcohol mg/dL < 10.0 (<10.0) mg/dl 08/22/25 08/22/25 Range/Units 13:41 13:44 WBC (4.8-10.8) K/ul RBC (4.70-6.10) M/uL Hgb (14.0-18.0) g/dL POC Hgb 13.9 L (14.0-18.0) g/dl Hct (42.0-52.0) % POC Hct 41 L (42-52) % MCV (80.0-100.0) fL MCH (25.0-34.0) pg MCHC (32.0-36.0) g/dL RDW Std Deviation (36.4-46.3) fL RDW Coeff of Tamika (11.5-14.5) % Plt Count (130-400) K/uL MPV (9.4-12.4) fL Immature Gran % (Auto) % Neut % (Auto) % Lymph % (Auto) % Bent % (Auto) % Eos % (Auto) % Baso % (Auto) % Neut # (Auto) (1.40-6.50) K/uL Lymph # (Auto) (1.20-3.40) K/uL Bent # (Auto) (0.11-0.59) K/uL Eos # (Auto) (0.00-0.50) K/uL Baso # (Auto) (0.00-0.20) K/uL Immature Gran # (Auto) (0.01-0.20) K/uL PT (9.0-12.0) Seconds INR (0.9-1.1) APTT (21-31) Seconds PTT Ratio POC Sodium 142 (135-144) mmol/L Sodium (136-145) mmol/L POC Potassium 4.5 (3.3-5.0) mmol/L Potassium (3.5-5.1) mmol/L POC Chloride 104 (101-112) mmol/L Chloride (98-107) mmol/L Carbon Dioxide (21-32) mmol/L POC Total CO2 24 (24-31) mmol/L Anion Gap (3-11) POC Anion Gap 20.0 (16-25) mmol/L POC BUN 18 (7-18) mg/dl BUN (6-23) mg/dl Creatinine (0.6-1.4) mg/dl POC Creatinine 0.9 (0.6-1.3) mg/dl Est Cr Clr Drug Dosing ml/min eGFR BUN/Creatinine Ratio (10-20) Glucose (70-99(Fasting)) mg/dl POC Glucose 296 H (70-99) mg/dl POC Glucose (other) 323 H (70-99) mg/dl Osmolality (280-300) mOsm/kg Calcium (8.6-10.3) mg/dl POC Ioniz Calcium Mary 1.21 (1.12-1.32) mmol/l Magnesium (1.7-2.4) mg/dl Total Bilirubin (0.2-1.0) mg/dl AST (13-39) U/L ALT (7-52) U/L Alkaline Phosphatase (34-104) U/L Troponin I High Sens (0-20) pg/ml Total Protein (6.0-8.3) gm/dl Albumin (3.4-5.0) gm/dl Globulin (2.5-4.0) gm/dl Albumin/Globulin Ratio (0.9-2) Vitamin B12 (180-914) pg/ml TSH (0.300-4.500) uIu/ml Urine Color Urine Appearance (Clear) Urine pH (4.5-7.5) Ur Specific [place] (1.000-1.030) Urine Protein (Negative) Urine Glucose (UA) (Negative) Urine Ketones (Negative) Urine Blood (Negative) Urine Nitrite (Negative) Urine Bilirubin (Negative) Urine Urobilinogen (Negative) Ur Leukocyte Esterase (Negative) Urine Comment Urine Opiates Screen (Neg) Ur Methadone, Qual (Neg) Urine Fentanyl Screen (Neg) Urine Barbiturates (Neg) Ur Phencyclidine (PCP) (Neg) U Amphetamin/Meth Scrn (Neg) MDMA (Ecstasy) Screen (Neg) U Benzodiazepines Scrn (Neg) Ur Cocaine Metabolite (Neg) U Marijuana (THC) Screen (Neg) Ethyl Alcohol mg/dL (<10.0) mg/dl Administered Medications Enoxaparin Sodium (Enoxaparin Inj 40 Mg/0.4 Ml Syr) 40 mg SQ Q24H OZIEL Stop: 09/21/25 19:29 Last Admin: 08/22/25 19:55 Dose: 40 mg Documented By: HUONG Insulin Aspart (Insulin Aspart Per Unit Charge) 0 units SC ACHS OZIEL Stop: 09/21/25 19:19 Last Admin: 08/22/25 19:54 Dose: 6 units Documented By: HUONG Co-signed By: psc Discontinued Medications Gadobutrol (Gadobutrol 30ml Vial) 7.5 ml IV ONCE ONE Stop: 08/22/25 18:29 Last Admin: 08/22/25 18:29 Dose: 7.5 ml Documented By: niko Sodium Chloride (Nss) 1,000 mls @ 999 mls/hr IV .Q1H1M ONE Stop: 08/22/25 14:17 Last Infusion: 08/22/25 15:59 Dose: Infused Documented By: Admin: 08/22/25 13:59 Dose: 999 mls/hr Documented By: LI Thiamine HCl 500 mg/ Sodium (Chloride) 55 mls @ 210 mls/hr IV NOW STA Stop: 08/22/25 13:32 Last Infusion: 08/22/25 14:56 Dose: Infused Documented By: Admin: 08/22/25 14:37 Dose: 210 mls/hr Documented By: ASAD Ioversol (Optiray 320 125ml) 120 ml IV ONCE ONE Stop: 08/22/25 14:25 Last Admin: 08/22/25 14:25 Dose: 120 ml Documented By: KECIA Imaging Data Radiologist's Impression: Chest X-Ray 08/22/25 13:17 XR chest 1V portable HISTORY: 70 years-old Male neuro deficit, acute stroke suspected COMPARISON: Chest CT 02/21/2025 TECHNIQUE: AP view of the chest FINDINGS: Cardiomediastinal and hilar silhouettes are within normal limits. No pneumothorax, pleural effusion, airspace consolidation or pulmonary edema. Degenerative changes of the shoulders and spine. IMPRESSION: No acute process of the chest. ACT 112: Negative or not required by law. The above report was generated using voice recognition software. It may contain grammatical, syntax or spelling errors. Electronically signed by: Brandon Simental M.D. 08/22/2025 1:[address] 08/22/25 13:[address] without contrast CT angiogram of the neck CT angiogram of the brain with contrast Provided History: Hallucinations Comparison: None Technique: HEAD CT: Using multidetector thin collimation helical acquisition technique, axial, coronal and sagittal CT images from the skull base to the vertex were obtained without intravenous contrast. HEAD and NECK CTA: During rapid bolus intravenous injection of nonionic contrast material, axial images were obtained using thin collimation multidetector helical technique from the base of the neck through the of vertex of the head. This CT angiogram data was reconstructed at thin intervals with mild overlap. 3D reconstructions were obtained. The axial source images, multiplanar reformations, 3D reconstructions in both maximum intensity projection display and volume rendered models were reviewed. Dose reduction techniques were achieved by using automatic exposure control and/or adjustment of mA and/or kV according to patient size and/or use of iterative reconstruction technique. Findings: Head CT: There is no intracranial hemorrhage, mass effect, or midline shift. Sherman/white matter differentiation in both cerebral hemispheres is preserved. Ventricles are proportionate to the cerebral sulci. Prior bur hole changes in the left parietal and left frontal bone. Moderate cerebral atrophy. Head CTA demonstrates no aneurysm or stenosis of the major intracranial arteries. Neck CTA demonstrates no stenosis of the major cervical arteries. The origins of the great vessels from the aortic arch are patent. No mass is noted within the visualized portions of the cervical soft tissues or lung apices. Impression: 1. Head CTA demonstrates no aneurysm or stenosis of the major intracranial arteries, 2. Neck CTA demonstrates no stenosis of the major cervical arteries. 3. No intracranial hemorrhage on the noncontrast head CT. Electronically signed by Terrence Diaz 08-22-2025 2:58 PM Head CTA 08/22/25 13:[address] without contrast CT angiogram of the neck CT angiogram of the brain with contrast Provided History: Hallucinations Comparison: None Technique: HEAD CT: Using multidetector thin collimation helical acquisition technique, axial, coronal and sagittal CT images from the skull base to the vertex were obtained without intravenous contrast. HEAD and NECK CTA: During rapid bolus intravenous injection of nonionic contrast material, axial images were obtained using thin collimation multidetector helical technique from the base of the neck through the of vertex of the head. This CT angiogram data was reconstructed at thin intervals with mild overlap. 3D reconstructions were obtained. The axial source images, multiplanar reformations, 3D reconstructions in both maximum intensity projection display and volume rendered models were reviewed. Dose reduction techniques were achieved by using automatic exposure control and/or adjustment of mA and/or kV according to patient size and/or use of iterative reconstruction technique. Findings: Head CT: There is no intracranial hemorrhage, mass effect, or midline shift. Sherman/white matter differentiation in both cerebral hemispheres is preserved. Ventricles are proportionate to the cerebral sulci. Prior bur hole changes in the left parietal and left frontal bone. Moderate cerebral atrophy. Head CTA demonstrates no aneurysm or stenosis of the major intracranial arteries. Neck CTA demonstrates no stenosis of the major cervical arteries. The origins of the great vessels from the aortic arch are patent. No mass is noted within the visualized portions of the cervical soft tissues or lung apices. Impression: 1. Head CTA demonstrates no aneurysm or stenosis of the major intracranial arteries, 2. Neck CTA demonstrates no stenosis of the major cervical arteries. 3. No intracranial hemorrhage on the noncontrast head CT. Electronically signed by Terrence Diaz 08-22-2025 2:58 PM Neck CTA 08/22/25 13:[address] without contrast CT angiogram of the neck CT angiogram of the brain with contrast Provided History: Hallucinations Comparison: None Technique: HEAD CT: Using multidetector thin collimation helical acquisition technique, axial, coronal and sagittal CT images from the skull base to the vertex were obtained without intravenous contrast. HEAD and NECK CTA: During rapid bolus intravenous injection of nonionic contrast material, axial images were obtained using thin collimation multidetector helical technique from the base of the neck through the of vertex of the head. This CT angiogram data was reconstructed at thin intervals with mild overlap. 3D reconstructions were obtained. The axial source images, multiplanar reformations, 3D reconstructions in both maximum intensity projection display and volume rendered models were reviewed. Dose reduction techniques were achieved by using automatic exposure control and/or adjustment of mA and/or kV according to patient size and/or use of iterative reconstruction technique. Findings: Head CT: There is no intracranial hemorrhage, mass effect, or midline shift. Sherman/white matter differentiation in both cerebral hemispheres is preserved. Ventricles are proportionate to the cerebral sulci. Prior bur hole changes in the left parietal and left frontal bone. Moderate cerebral atrophy. Head CTA demonstrates no aneurysm or stenosis of the major intracranial arteries. Neck CTA demonstrates no stenosis of the major cervical arteries. The origins of the great vessels from the aortic arch are patent. No mass is noted within the visualized portions of the cervical soft tissues or lung apices. Impression: 1. Head CTA demonstrates no aneurysm or stenosis of the major intracranial arteries, 2. Neck CTA demonstrates no stenosis of the major cervical arteries. 3. No intracranial hemorrhage on the noncontrast head CT. Electronically signed by Terrence Diaz 08-22-2025 2:58 PM Discharge Plan Visit Data Chief Complaint: Visual Disturbance Stated Complaint: [facility] ED Provider: Joe Pulido Discharge Problem: Episodes of formed visual hallucinations, Alcohol use disorder in remission, Hyperglycemia due to type 2 diabetes mellitus, Dehydration Patient Disposition: Admitted As Inpatient Condition: Fair Discharge Instructions Interventions: ED Discharge Assessment Last Done: 08/22/25 18:03 Discharge Problem: Hyperglycemia due to type 2 diabetes mellitus Qualifiers: Diabetes mellitus exterminator insulin use: unspecified half-way insulin use status Qualified Code(s): E11.65 - Type 2 diabetes mellitus with hyperglycemia
[2025-08-22] MEDS: OPTIRAY 320 125ml IV ONE (14:25)
[2025-08-22] MEDS: THIAMINE HCL 500 MG in SODIUM CHLORIDE 0.9% 50 ML IV STA (14:37)
[2025-08-22 14:55] LABS: Amphetamines+Metham, Urine Neg (Neg); MDMA (Ecstacy), Urine Neg (Neg); Marijuana, Urine Neg (Neg)
--- NOTE | 2025-08-22 15:00 | CT Scan Report ---
Head CT without contrast CT angiogram of the neck CT angiogram of the brain with contrast Provided History: Hallucinations Comparison: None Technique: HEAD CT: Using multidetector thin collimation helical acquisition technique, axial, coronal and sagittal CT images from the skull base to the vertex were obtained without intravenous contrast. HEAD and NECK CTA: During rapid bolus intravenous injection of nonionic contrast material, axial images were obtained using thin collimation multidetector helical technique from the base of the neck through the of vertex of the head. This CT angiogram data was reconstructed at thin intervals with mild overlap. 3D reconstructions were obtained. The axial source images, multiplanar reformations, 3D reconstructions in both maximum intensity projection display and volume rendered models were reviewed. Dose reduction techniques were achieved by using automatic exposure control and/or adjustment of mA and/or kV according to patient size and/or use of iterative reconstruction technique. Findings: Head CT: There is no intracranial hemorrhage, mass effect, or midline shift. Sherman/white matter differentiation in both cerebral hemispheres is preserved. Ventricles are proportionate to the cerebral sulci. Prior bur hole changes in the left parietal and left frontal bone. Moderate cerebral atrophy. Head CTA demonstrates no aneurysm or stenosis of the major intracranial arteries. Neck CTA demonstrates no stenosis of the major cervical arteries. The origins of the great vessels from the aortic arch are patent. No mass is noted within the visualized portions of the cervical soft tissues or lung apices. Impression: 1. Head CTA demonstrates no aneurysm or stenosis of the major intracranial arteries, 2. Neck CTA demonstrates no stenosis of the major cervical arteries. 3. No intracranial hemorrhage on the noncontrast head CT. Electronically signed by Terrence Diaz 08-22-2025 2:58 PM
--- NOTE | 2025-08-22 16:12 | History & Physical Report ---
Date of Service August 22, 2025 Assessment & Plan (1) Episodes of formed visual hallucinations: (2) Alcohol use disorder in remission: (3) BPH associated with nocturia: (4) Type 2 diabetes mellitus with diabetic neuropathy, unspecified: Plan In summary this is a 70-year-old male who presents with persistent visual hallucinations with a large degree of paranoia #Visual hallucinations // Alcohol use disorder in sustained remission // Suspected MCI versus dementia This patient has presented previously with visual hallucinations however based on review of documentation available has never had this degree of paranoia associated with them. He has been evaluated by psychiatry previously, their recommendations have been reviewed with suggestion of the possible Lewy body dementia or another form of cognitive impairment that is associated with these visual hallucinations. The patient also has a history of alcohol use disorder, endorses long-term remission; no previous hospitalizations after review of exams performed and recommendations from Physical and Occupational Therapy suggest previous findings concerning for Wernicke or Korsakoff syndromes. His gait from previous hospitalizations as it was described by physical therapy does sound like it may be parkinsonian, he has some findings on exam concerning for parkinsonism specifically with his bradykinesia but without any evidence of cogwheel rigidity. Screening assessments for anxiety and depression are without significant findings at the time of his current presentation, making a mood disorder associated psychosis unlikely. CT imaging does not suggest any kind of structural brain lesion that would precipitate these findings however no brain MRI is available for review in our EMR. His presenting laboratory assessment is relatively unremarkable for any acute findings, his hyperglycemia is not severe enough to be causing this degree of visual hallucination. Psychiatry consulted for assistance with completing MoCA MRI brain without contrast is pending Serum TSH and vitamin B12 levels are pending Whole blood thiamine level has been sent, will not be resulted for several days Start thiamine 500 mg IV every 8 hours scheduled for 3 days and then transition to oral intake My primary suspicion is that the patient has an undiagnosed cognitive impairment/dementia associated with psychotic features, would prefer to not start antipsychotic therapy until cognitive assessment can be completed however if necessary and nonpharmacologic redirection is not able to be achieved while he is hospitalized would recommend intramuscular olanzapine as a first-line intervention as this is the medication I would anticipate initiating if this suspicion is confirmed versus starting aripiprazole #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, angiopathy, and autonomic neuropathy No recent hemoglobin A1c for reference, lab values currently pending; glycemic target of preprandial less than 100 and all random checks less than 140; the patient has not been taking any other usual home medications, therefore we will start a weight-based insulin regimen at admission - Start Lantus 5 units SQ twice daily - Start aspart insulin with correction factor of 20 mg/dL/unit and carbohydrate ratio 15 g/unit Pharmacy consulted for assistance with glycemic management during hospitalization #BPH with LUTS Previously diagnosed with benign prostatic hyperplasia with LUTS; previously had a robust response to Flomax which we will resume during his hospitalization DVT ppx: Start Lovenox 40 mg SQ daily GI ppx: not indicated at this time Admission and Anticipated Discharge Date Admission Date: 08/22/2025 History of Present Illness Chief Complaint: Visual hallucinations Primary Care Provider: RIVER Harris Mr. Sebastian is a 70-year-old male whose active medical conditions include type II diabetes mellitus with peripheral neuropathy and angiopathy, mixed hyperlipidemia, alcohol use disorder in sustained remission, among other chronic medical conditions who presented to the [facility] on 08/22 by EMS for visual hallucinations. At the time my exam the patient is resting comfortably in bed. After introducing myself, the patient asked "why my here? I do not need to be here."; After further questioning regarding the circumstances that led to the patient's presentation to the emergency department the patient reported the following: His upstairs neighbors have a "projector" that can project to 3D objects that he describes as "holograms". He describes that the projector enters into his apartment through a hole in the wall that can be resealed by the projector to prevent it from being discovered by others. He states that "everyone in [place] has these". He states that they projected a woman lying on the floor in his bedroom, for whom he called an ambulance for which led to EMS arrival. Upon EMS arrival, the projector had been "withdrawn into the wall and the hole sealed'. He states that EMS thought that he was "crazy" and brought to the hospital for further evaluation. The patient, upon further questioning, does endorse historical episodes of visual hallucinations however states that these are different as he knows that the projector exists stating that there is a projector in the hospital as well specifically in the triage emergency department room that projected a "comic strip" whenever he came in. He denies any visual hallucinations occurring outside of episodes associated with the projector. He states that the projected objects do not typically produce sound. He denies any separate independent auditory hallucinations. He has been without any prescribed medications for quite some time, he has difficulty recalling what medications he was prescribed previously. He has not had any recent appointments with his primary care physician's office. He states he eats a regular diet, he is able to get food for himself independently, and take care of things around his apartment without difficulty. Allergies Allergy/AdvReac Type Severity Reaction Status Date / Time rice Allergy Severe WILD RICE Verified 08/22/25 15:49 PER PT----Difficulty Breathing Home Medications Medication Instructions Recorded Confirmed Type blood sugar diagnostic (OneTouch #100 ea 03/28/23 04/22/25 Rx Verio test strips) blood-glucose meter (OneTouch #1 ea 03/28/23 04/22/25 Rx Verio Flex Start kit) lancets 30 gauge #100 ea 03/28/23 04/22/25 Rx tamsulosin 0.4 mg capsule 0.4 mg PO DAILY #30 caps 09/19/24 08/22/25 Rx atorvastatin 20 mg tablet 20 mg PO DAILY #90 tabs 09/22/24 08/22/25 Rx empagliflozin 10 mg tablet 10 mg PO DAILY #30 tabs 01/05/25 08/22/25 Rx glyburide 5 mg tablet 5 mg PO DAILY #30 tabs 02/25/25 08/22/25 Rx metformin 500 mg tablet,extended 1,000 mg (2 x 500 mg) PO BID #60 02/25/25 08/22/25 Rx release 24 hr tabs thiamine HCl (vitamin B1) 100 mg 200 mg (2 x 100 mg) PO BID #60 tabs 02/25/25 08/22/25 Rx tablet insulin glargine 100 unit/mL (3 10 unit subcut DIRECTED 08/22/25 08/22/25 History mL) subcutaneous pen (Lantus Solostar U-100 Insulin) Past Med/Surg History Problem List (Updated 08/22/25 @ 17:07 by Pete Cerna DO) Shuffling gait (Chronic) Alcohol use disorder in remission (Chronic) BPH associated with nocturia (Chronic) Type 2 diabetes mellitus with diabetic neuropathy, unspecified (Chronic) Hyperlipidemia (Chronic) Tinea pedis (Chronic) Sensorineural hearing loss (SNHL) of both ears (Chronic) Benign familial tremor (Chronic) Episodes of formed visual hallucinations (Acute) Tinnitus of right ear (Chronic) Medical History Diabetic foot ulcer Syncope and collapse History of falling Personal history of other diseases of the nervous system and sense organs Laceration without foreign body of scalp, subsequent encounter Rhabdomyolysis Surgical History History of craniotomy Family History Mother Stroke Father Stroke Sister Breast cancer Denies family history of Ovarian cancer Prostate cancer Myocardial infarction Colorectal cancer Cancer Social History (Updated 08/22/25 @ 16:58 by Pete Cerna DO) Smoking Status: Former smoker Second Hand Exposure: No; Do You Dip or Chew Tobacco: No; Hx Alcohol Use: Yes Alcohol type: beer Alcohol Intake Frequency: Monthly or Less Hx Substance Use: No Preferred Language: Pashto Communication Ability: Effective Visual Impairment: No Limitations Hearing Ability: Hard of Hearing Concrete Paver Required: No Beliefs That Will Affect Care: None marital status: Single Current Living Situation: Alone current occupational status: unemployed How many Children do You have: 0 Feels Safe at Home: Yes Childhood Exposure to Second-Hand Smoke: Yes (mother) Diet: regular Diet Comment: does not follow a diet during the past year weight has: remained stable Physical Activity Frequency: Does not Exercise Assistive Devices: Cane and Walker Review of Systems Review of Systems: Review of constitutional, cardiovascular, pulmonary, gastrointestinal, genitourinary, neurologic, psychiatric systems was unremarkable except for pertinent positive and negative findings discussed above Physical Exam Physical Exam: General: Elderly male in no acute distress Vital Signs: Reviewed HEENT: Moist mucous membranes; extraocular motion intact without evidence of nystagmus in any higgins of view; pupils equally round and reactive to light Pulmonary: Symmetric chest wall excursion without restriction; clear to auscultation bilaterally Cardiovascular: Regular rate and rhythm without murmurs, rubs, or gallops; right radial pulse 2+; brisk capillary refill of the lower extremities with no notable lower extremity edema Gastrointestinal: Soft, nontender Musculoskeletal: Mild muscular atrophy that is generalized, no evidence of sarcopenia nor anasarca Neurologic: Cranial nerves II through XII grossly intact; no discernible focal weakness; some diminished sensation to blunt touch of the bilateral lower extremities which crosses both dermatomes and myotomes without associated paresthesia of the upper extremities; finger-nose and [id number] was unremarkable except for a continuous high-frequency low amplitude tremulousness involving the upper extremities while performing this test; no reproducible cogwheel rigidity at the wrist; with bradykinesia when asked to tap his 1st and 2nd finger together as fast as possible Psychiatric: Alert and oriented to self, place, time, and circumstance; exhibits a high degree of suspicion and distressed of this provider in addition to his neighbor at home of whom he suggests has been "projecting objects" into his house; exhibits limited insight with respect to the claims of this projector; denies any thoughts of harming himself or harming others Skin: Onychomycosis of the bilateral lower extremities; soft erythematous change with secondary lichenification involving the upper and lower extremities in various locations, not in any pattern involving specific joints or pathognomonic areas Results & Data Results & Data Vital Signs (Past 12 Hours) Vital Signs Temp Pulse Pulse Resp BP BP Pulse Ox 08/22/25 15:30 78 17 131/76 08/22/25 15:00 70 14 97 08/22/25 15:00 126/75 08/22/25 14:36 74 18 133/76 97 08/22/25 11:56 36.5 C 86 20 90/52 L 99 08/22/25 11:56 36.5 C 86 20 90/52 L 99 O2 Del Method 08/22/25 15:30 08/22/25 15:00 Room Air 08/22/25 15:00 08/22/25 14:36 Room Air 08/22/25 11:56 Room Air 08/22/25 11:56 Room Air Laboratory Results Hemoglobin 13.9 Presenting serum glucose 369 Serum osmolality 309 Urinalysis with specific gravity 1.042, urine glucose 3, urine ketones trace Urine toxicology screen was negative without evidence of serum alcohol level Serum vitamin B12 and TSH are pending Whole blood thiamine level has been sent but will not result for some time Diagnostic Findings CT head without contrast as well as CTA head and neck obtained without acute pathologic findings Code Status & VTE Plan Code Status Full code VTE Prophylaxis Plan VTE Prophylaxis will be ordered: Yes PG Care Time/CCT Total # of Minutes Spent Total Time Spent with Patient: Total time spent is greater than 50% in coordination of care (as documented) at patient's floor/unit and/or counseling patient: Coding Level of Care Code 40478 INT INP/OBS CARE 2/55MIN Diagnoses Episodes of formed visual hallucinations R44.1 Alcohol use disorder in remission F10.91 BPH associated with nocturia N40.1; R35.1 Type 2 diabetes mellitus with diabetic neuropathy, with long-term current use of insulin E11.40; Z79.4 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
[2025-08-22 17:38] LABS: Thyroid Stimulating Hormone 4.429 uIu/ml (0.300-4.500)
[2025-08-22] MEDS: GADOBUTROL 30ML VIAL IV ONE (18:29)
[2025-08-22] MEDS ORDERED: GLUCOSE 40% GEL 15 GM TUBE PO PRN (19:04)
[2025-08-22] MEDS ORDERED: CARBOHYDRATES FOR HYPOGLYCEMIA PO PRN (19:04)
[2025-08-22] MEDS ORDERED: PHARMACY GLYCEMIC MGMT CONSULT PRN (19:04)
[2025-08-22] MEDS ORDERED: GLUCOSE 10 TAB/TUBE PO PRN (19:04)
[2025-08-22] MEDS ORDERED: DEXTROSE 50% 50 ML SYRINGE IV PRN (19:04)
[2025-08-22] MEDS ORDERED: GLUCAGON FOR INJ 1 MG VIAL SQ PRN (19:04)
--- NOTE | 2025-08-22 19:07 | Magnetic Resonance Report ---
MRI of the brain performed with and without IV contrast History: Hallucinations Comparison: None Technique: Multiplanar T1 weighted, axial T2/FLAIR, and susceptibility images were obtained without intravenous contrast. Following intravenous gadolinium based contrast administration, axial T2 weighted, diffusion, and T1-weighted images were obtained. Findings: No evidence for intracranial mass lesion, mass-effect, midline shift, or abnormal extra-axial fluid collection. Postcontrast images demonstrate no abnormal intracranial enhancement. The orbits are grossly unremarkable. Moderate cerebral atrophy. Minimal chronic small vessel ischemic changes in the white matter. No abnormally reduced diffusion or evidence for acute infarct. Normal intravascular flow voids. Impression: Normal brain MRI with and without IV contrast Electronically signed by Terrence Diaz 08-22-2025 7:07 PM
--- NOTE | 2025-08-22 19:49 | Pharmacy Report ---
Pharmacy Glycemic Short Note 2 - Date of Service August 22, 2025 - Glycemic Short BSG Results (Last 24 hours): 08/22/25 08/22/25 08/22/25 12:45 13:41 13:44 Glucose 369 H* POC Glucose 296 H POC Glucose (other) 323 H 08/22/25 19:18 Glucose POC Glucose 243 H POC Glucose (other) OUTPATIENT ANTIDIABETIC REGIMEN: * empagliflozin 10 mg po daily, glyburide 5 mg po daily, metformin 1 gm bid, Lantus 10 units (as directed?) ASSESSMENT: * 70 year old admitted for visual hallucinations. Type 2 diabetic - pharmacy consulted for glycemic management. Last A1c >11% earlier this year, repeat for tomorrow ordered. BSGs >200 this evening. Will start novolog and provide scale for Lantus at HS time PLAN FOR INPATIENT GLYCEMIC CONTROL: * Hold outpatient oral diabetes medications * Basal insulin * Lantus 10-15 units HS * Bolus insulin * NovoLog per scale ACHS or Q6hrs while NPO * Goal Range: Low 110 mg/dL - High 140 mg/dL * Correction Factor: 20 mg/dL/unit * Nutritional / Prandial insulin per carb ratio of 1 unit per 10 grams CHO consumed
[2025-08-22] MEDS: INSULIN ASPART PER UNIT CHARGE SC SCH (19:54)
[2025-08-22] MEDS: ENOXAPARIN INJ 40 MG/0.4 ML SYR SQ SCH (19:55)
[2025-08-22] MEDS: THIAMINE HCL 500 MG in SODIUM CHLORIDE 0.9% 50 ML IV SCH (21:52)
[2025-08-22] MEDS: LANTUS PER UNIT CHARGE SQ SCH (21:55)
[2025-08-23] MEDS: INSULIN ASPART PER UNIT CHARGE SC ONE (02:32)
[2025-08-23 07:58] LABS: Hemoglobin A1C 11.0 % (4.5-5.6)
--- NOTE | 2025-08-23 08:15 | Hospitalist Progress Note ---
Date of Service August 23, 2025 Assessment & Plan (1) Episodes of formed visual hallucinations: (2) Alcohol use disorder in remission: (3) BPH associated with nocturia: (4) Type 2 diabetes mellitus with diabetic neuropathy, unspecified: Plan In summary this is a 70-year-old male who presents with persistent visual hallucinations with a large degree of paranoia #Visual hallucinations // Alcohol use disorder in sustained remission // Suspected MCI versus dementia This patient has presented previously with visual hallucinations however based on review of documentation available has never had this degree of paranoia associated with them. He has been evaluated by psychiatry previously, their recommendations have been reviewed with suggestion of the possible Lewy body dementia or another form of cognitive impairment that is associated with these visual hallucinations. The patient also has a history of alcohol use disorder, endorses long-term remission; no previous hospitalizations after review of exams performed and recommendations from Physical and Occupational Therapy suggest previous findings concerning for Wernicke or Korsakoff syndromes. His gait from previous hospitalizations as it was described by physical therapy does sound like it may be parkinsonian, he has some findings on exam concerning for parkinsonism specifically with his bradykinesia but without any evidence of cogwheel rigidity. Screening assessments for anxiety and depression are without significant findings at the time of his current presentation, making a mood disorder associated psychosis unlikely. CT imaging does not suggest any kind of structural brain lesion that would precipitate these findings however no brain MRI is available for review in our EMR. His presenting laboratory assessment is relatively unremarkable for any acute findings, his hyperglycemia is not severe enough to be causing this degree of visual hallucination; subsequent assessment of TSH and Vitamin B12 were unremarkable Psychiatry liason consulted for assistance with completing MoCA MRI brain without contrast without evidence of significant pathology Whole blood thiamine level has been sent, will not be resulted for several days Continue thiamine 500 mg IV every 8 hours scheduled for 3 days and then transition to oral intake My primary suspicion is that the patient has an undiagnosed cognitive impairment/dementia associated with psychotic features, would prefer to not start antipsychotic therapy until cognitive assessment can be completed however if necessary and nonpharmacologic redirection is not able to be achieved while he is hospitalized would recommend intramuscular olanzapine as a first-line intervention as this is the medication I would anticipate initiating if this suspicion is confirmed versus starting aripiprazole #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, angiopathy, and autonomic neuropathy HbA1c 11%; glycemic target of preprandial less than 100 and all random checks less than 140; the patient has not been taking any other usual home medications, therefore we will start a weight-based insulin regimen at admission Pharmacy consulted for assistance with glycemic management during hospitalization #BPH with LUTS Previously diagnosed with benign prostatic hyperplasia with LUTS; previously had a robust response to Flomax which has been resumed DVT ppx: Continue Lovenox 40 mg SQ daily GI ppx: not indicated at this time Admission and Anticipated Discharge Date Admission Date: August 22, 2025 Subjective Mr. Sebastian is a 70-year-old male whose active medical conditions include type II diabetes mellitus with peripheral neuropathy and angiopathy, mixed hyperlipidemia, alcohol use disorder in sustained remission, among other chronic medical conditions who presented to the [facility] on 08/22 by EMS for visual hallucinations. No acute overnight events; patient remains very suspicious of healthcare providers, though does recognize this provider from admission. Review of Systems Review of Systems: Review of constitutional, cardiovascular, pulmonary, gastrointestinal, genitourinary, neurologic, psychiatric systems was unremarkable except for pertinent positive and negative findings discussed above Physical Exam Physical Exam: General: Elderly male in no acute distress Vital Signs: Reviewed HEENT: Moist mucous membranes Pulmonary: Symmetric chest wall excursion without restriction; clear to auscultation bilaterally Cardiovascular: Regular rate and rhythm without murmurs, rubs, or gallops; right radial pulse 2+; brisk capillary refill of the lower extremities with no notable lower extremity edema Gastrointestinal: Soft, nontender Musculoskeletal: Mild muscular atrophy that is generalized, no evidence of sarcopenia nor anasarca Psychiatric: Alert and oriented to self, place, time, and circumstance; remains with behavioral indicators and verbal endorsement of suspicion regarding healthcare provider intent; denies any thoughts of harming himself or harming others Skin: Onychomycosis of the bilateral lower extremities; soft erythematous change with secondary lichenification involving the upper and lower extremities in various locations, not in any pattern involving specific joints or pathognomonic areas Results & Data Results & Data Vital Signs (Past 12 Hours) Vital Signs Temp Pulse Resp BP Pulse Ox O2 Del Method 08/23/25 07:26 36.3 C L 60 16 92/64 L 98 Room Air 08/23/25 00:00 36.3 C L 67 18 108/61 96 Room Air Laboratory Results HbA1c 11% PG Care Time/CCT Total # of Minutes Spent Total Time Spent with Patient: Total time spent is greater than 50% in coordination of care (as documented) at patient's floor/unit and/or counseling patient: Coding Level of Care Code 16846 SUB INP/OBS CARE 2/35MIN Diagnoses Episodes of formed visual hallucinations R44.1 Alcohol use disorder in remission F10.91 BPH associated with nocturia N40.1; R35.1 Type 2 diabetes mellitus with diabetic neuropathy, with long-term current use of insulin E11.40; Z79.4 Diabetes mellitus terminal carman insulin use: with terminal carman use (4) Type 2 diabetes mellitus with diabetic neuropathy, unspecified Diabetes mellitus terminal carman insulin use: with terminal carman use Qualified Code(s): E11.40 - Type 2 diabetes mellitus with diabetic neuropathy, unspecified; 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
[2025-08-23 08:47] LABS: Albumin Level 3.7 gm/dl (3.4-5.0); Anion Gap 5.0 (3-11); Blood Urea Nitrogen 13.0 mg/dl (6-23); Calcium 9.0 mg/dl (8.6-10.3); Carbon Dioxide 30.0 mmol/L (21-32); Chloride 109.0 mmol/L (98-107); Creatinine Clr Calc Pharmacy 84.8 ml/min; Glucose 116.0 mg/dl (70-99(Fasting)); Potassium 3.9 mmol/L (3.5-5.1); Sodium 144.0 mmol/L (136-145)
[2025-08-23] MEDS: POLYETHYLENE (MIRALAX) 17 GM PACK PO SCH (08:56)
[2025-08-23] MEDS: LANTUS PER UNIT CHARGE SC SCH (08:56)
[2025-08-23] MEDS: TAMSULOSIN HCL 0.4 MG CAP PO SCH (08:57)
--- NOTE | 2025-08-23 17:17 | Communication Note ---
Date of Service: August 23, 2025 Psychiatric liaison note reviewed; MOCA assessment consistent with mild/moderate dementia. 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 Given the patient has minimal impact on daily life related to Parkinson-like symptoms, I do not feel they would benefit from anti-parkinsonian medications at this time. I do feel, however, they would benefit from initiation of a second generation antipsychotic to help with their hallucinations and delusions. Start Aripiprazole 5 mg p.o. at bedtime
[2025-08-23] MEDS: ARIPiprazole 5 MG TAB PO SCH (21:19)
--- NOTE | 2025-08-24 01:20 | Electrocardiogram Report ---
Test Reason : Blood Pressure : */* mmHG Vent. Rate : 66 BPM Atrial Rate : 66 BPM P-R Int : 156 ms QRS Dur : 70 ms QT Int : 368 ms P-R-T Axes : 102 -20 65 degrees QTcB Int : 385 ms Normal sinus rhythm with sinus arrhythmia Low voltage QRS Septal infarct (cited on or before 21-Apr-2025) Abnormal ECG When compared with ECG of 21-Apr-2025 23:28, QRS axis Shifted right Borderline criteria for Inferior infarct are no longer Present Confirmed by Brittany Armendariz (Cierra) on 08/24/2025 1:20:02 AM Referred By: Confirmed By: Brittany Armendariz
--- NOTE | 2025-08-24 07:48 | Hospitalist Progress Note ---
Date of Service August 24, 2025 Assessment & Plan (1) Lewy body dementia with psychotic disturbance: (2) Episodes of formed visual hallucinations: (3) Alcohol use disorder in remission: (4) BPH associated with nocturia: (5) Type 2 diabetes mellitus with diabetic neuropathy, unspecified: Plan In summary this is a 70-year-old male who presents with persistent visual hallucinations with a large degree of paranoia #Visual hallucinations // Alcohol use disorder in sustained remission // Suspected MCI versus dementia This patient has presented previously with visual hallucinations however based on review of documentation available has never had this degree of paranoia associated with them. He has been evaluated by psychiatry previously, their recommendations have been reviewed with suggestion of the possible Lewy body dementia or another form of cognitive impairment that is associated with these visual hallucinations. There has been no significant improvement or change with high dose thiamine IV therapy. MRI brain was without evidence of pathology. MOCA indicative of moderate dementia. Remaining laboratory assessment is without evidence of metabolic causes. - Extended discussion with the patient today regarding diagnosis of Lewy-body dementia; he is adamant that he does not have dementia, as he "knows dementia... my parents had dementia... "; after further discussion, the patient is agreeable to this as a tentative diagnosis but adamant that it is not related to the "projectors" - Challenging the patient with regard to these hallucinations are not of benefit, in my opinion; I hope, with pharmacologic intervention, there is some improvement in his hallucinations over time - Currently, the patient is able to reason through his remaining medical conditions and exhibit adequate critical thinking that he remains able to make independent medical decisions, even though some of his decisions are in opposition of this provider's recommendations Whole blood thiamine level has been sent, will not be resulted for several days #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, angiopathy, and autonomic neuropathy HbA1c 11%; glycemic target of preprandial less than 100 and all random checks less than 140; suspect the patient's uncontrolled A1c is in large part due to loss of medication refills; these will be provided at discharge Pharmacy consulted for assistance with glycemic management during hospitalization #BPH with LUTS Previously diagnosed with benign prostatic hyperplasia with LUTS; previously had a robust response to Flomax which has been resumed DVT ppx: Continue Lovenox 40 mg SQ daily GI ppx: not indicated at this time Hopeful discharge in the next 24 to 48 hours Admission and Anticipated Discharge Date Admission Date: August 22, 2025 Subjective Mr. Sebastian is a 70-year-old male whose active medical conditions include type II diabetes mellitus with peripheral neuropathy and angiopathy, mixed hyperlipidemia, alcohol use disorder in sustained remission, among other chronic medical conditions who presented to [facility] on 08/22 by EMS for visual hallucinations. No acute overnight events; emphatic that he is not "crazy" Review of Systems Review of Systems: Review of constitutional, cardiovascular, pulmonary, gastrointestinal, genitourinary, neurologic, psychiatric systems was unremarkable except for pertinent positive and negative findings discussed above Physical Exam Physical Exam: General: Elderly male in no acute distress Vital Signs: Reviewed HEENT: Moist mucous membranes Pulmonary: Symmetric chest wall excursion without restriction; clear to auscultation bilaterally Cardiovascular: Regular rate and rhythm without murmurs, rubs, or gallops; right radial pulse 2+; brisk capillary refill of the lower extremities with no notable lower extremity edema Gastrointestinal: Soft, nontender Musculoskeletal: Mild muscular atrophy that is generalized, no evidence of sarcopenia nor anasarca Psychiatric: Alert and oriented to self, place, time, and circumstance; remains with behavioral indicators and verbal endorsement of suspicion regarding healthcare provider intent; denies any thoughts of harming himself or harming others; emphatic that the "projectors" are real, and that he is not "crazy" Skin: Onychomycosis of the bilateral lower extremities; soft erythematous change with secondary lichenification involving the upper and lower extremities in various locations, not in any pattern involving specific joints or pathognomonic areas Results & Data Results & Data Vital Signs (Past 12 Hours) Vital Signs Temp Pulse Resp BP Pulse Ox O2 Del Method 08/24/25 07:05 36.4 C L 71 16 99/67 L 96 Room Air 08/23/25 23:05 36.5 C 70 16 91/53 L 97 Room Air 08/23/25 21:20 Room Air PG Care Time/CCT Total # of Minutes Spent Total Time Spent with Patient: Total time spent is greater than 50% in coordination of care (as documented) at patient's floor/unit and/or counseling patient: Coding Level of Care Code 02172 SUB INP/OBS CARE 2/35MIN Diagnoses Moderate Lewy body dementia with psychotic disturbance G31.83; F02.B2 Dementia severity: moderate Episodes of formed visual hallucinations R44.1 Alcohol use disorder in remission F10.91 BPH associated with nocturia N40.1; R35.1 Type 2 diabetes mellitus with diabetic neuropathy, with long-term current use of insulin E11.40; Z79.4 Diabetes mellitus rodent exterminator insulin use: with rodent exterminator use (1) Lewy body dementia with psychotic disturbance Dementia severity: moderate Qualified Code(s): G31.83 - Neurocognitive disorder with Lewy bodies; F02.B2 - Dementia in other diseases classified elsewhere, moderate, with psychotic disturbance (5) Type 2 diabetes mellitus with diabetic neuropathy, unspecified Diabetes mellitus rodent exterminator insulin use: with rodent exterminator use Qualified Code(s): E11.40 - Type 2 diabetes mellitus with diabetic neuropathy, unspecified; Z79.4 - residential (current) use of insulin
[2025-08-24] MEDS: INFLUENZA VACC TS2025-26(65y+)/PF (IIV3) 0.5mL Syr IM ONE (10:25)
--- NOTE | 2025-08-25 07:24 | Hospitalist Progress Note ---
Date of Service August 25, 2025 Assessment & Plan (1) Lewy body dementia with psychotic disturbance: (2) Episodes of formed visual hallucinations: (3) Alcohol use disorder in remission: (4) BPH associated with nocturia: (5) Type 2 diabetes mellitus with diabetic neuropathy, unspecified: Plan In summary this is a 70-year-old male who presents with persistent visual hallucinations with a large degree of paranoia #Visual hallucinations // Alcohol use disorder in sustained remission // Suspected MCI versus dementia This patient has presented previously with visual hallucinations however based on review of documentation available has never had this degree of paranoia associated with them. He has been evaluated by psychiatry previously, their recommendations have been reviewed with suggestion of the possible Lewy body dementia or another form of cognitive impairment that is associated with these visual hallucinations. There has been no significant improvement or change with high dose thiamine IV therapy. MRI brain was without evidence of pathology. MOCA indicative of moderate dementia. Remaining laboratory assessment is without evidence of metabolic causes. - Extended discussion with the patient today regarding diagnosis of Lewy-body dementia; he is adamant that he does not have dementia, as he "knows dementia... my parents had dementia... "; after further discussion, the patient is agreeable to this as a tentative diagnosis but adamant that it is not related to the "projectors" - Challenging the patient with regard to these hallucinations are not of benefit, in my opinion; I hope, with pharmacologic intervention, there is some improvement in his hallucinations over time - Currently, the patient is able to reason through his remaining medical conditions and exhibit adequate critical thinking that he remains able to make independent medical decisions, even though some of his decisions are in opposition of this provider's recommendations Whole blood thiamine level has been sent, will not be resulted for several days #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, angiopathy, and autonomic neuropathy HbA1c 11%; glycemic target of preprandial less than 100 and all random checks less than 140; suspect the patient's uncontrolled A1c is in large part due to loss of medication refills; these will be provided at discharge Pharmacy consulted for assistance with glycemic management during hospitalization #BPH with LUTS Previously diagnosed with benign prostatic hyperplasia with LUTS; previously had a robust response to Flomax which has been resumed DVT ppx: Continue Lovenox 40 mg SQ daily GI ppx: not indicated at this time Anticipate discharge home without services 08/25 Admission and Anticipated Discharge Date Admission Date: August 22, 2025 Subjective Mr. Sebastian is a 70-year-old male whose active medical conditions include type II diabetes mellitus with peripheral neuropathy and angiopathy, mixed hyperlipidemia, alcohol use disorder in sustained remission, among other chronic medical conditions who presented to the [facility] on 08/22 by EMS for visual hallucinations. No acute overnight events Results & Data Results & Data Vital Signs (Past 12 Hours) Vital Signs Temp Pulse Resp BP Pulse Ox O2 Del Method 08/25/25 06:58 36.5 C 76 16 94/52 L 100 Room Air 08/24/25 22:45 36.7 C 83 18 95/63 L 95 Room Air PG Care Time/CCT Total # of Minutes Spent Total Time Spent with Patient: Total time spent is greater than 50% in coordination of care (as documented) at patient's floor/unit and/or counseling patient: Coding Diagnoses Moderate Lewy body dementia with psychotic disturbance G31.83; F02.B2 Dementia severity: moderate Episodes of formed visual hallucinations R44.1 Alcohol use disorder in remission F10.91 BPH associated with nocturia N40.1; R35.1 Type 2 diabetes mellitus with diabetic neuropathy, with long-term current use of insulin E11.40; Z79.4 Diabetes mellitus skilled nursing insulin use: with skilled nursing use (1) Lewy body dementia with psychotic disturbance Dementia severity: moderate Qualified Code(s): G31.83 - Neurocognitive disorder with Lewy bodies; F02.B2 - Dementia in other diseases classified elsewhere, moderate, with psychotic disturbance (5) Type 2 diabetes mellitus with diabetic neuropathy, unspecified Diabetes mellitus manager terminal insulin use: with manager terminal use Qualified Code(s): E11.40 - Type 2 diabetes mellitus with diabetic neuropathy, unspecified; Z79.4 - senior care (current) use of insulin
[2025-08-25] MEDS: LANTUS PER UNIT CHARGE SQ SCH (09:34)
--- NOTE | 2025-08-25 14:14 | Pharmacy Report ---
Pharmacy Glycemic Short Note 2 - Date of Service August 25, 2025 - Glycemic Short BSG Results (Last 24 hours): 08/24/25 08/24/25 08/25/25 16:43 20:34 07:42 POC Glucose 125 H 131 H 90 08/25/25 11:42 POC Glucose 107 H OUTPATIENT ANTIDIABETIC REGIMEN: * empagliflozin 10 mg po daily, glyburide 5 mg po daily, metformin 1 gm bid, Lantus 10 units (as directed?) ASSESSMENT: 08/25: * Parveen received a total of 46 units of SC insulin yesterday (25 units Lantus + 21 units Novolog) * Fasting BSG with significant downtrend (176-> 90 mg/dL). Will decrease basal insulin ~20%. * Lunch BSG below goal. Will also loosen CF/CR. 08/24: * 70 year old admitted for visual hallucinations. Type 2 diabetic - pharmacy consulted for glycemic management. Last A1c >11% earlier this year, repeat for tomorrow ordered. BSGs >200 this evening. Will start novolog and provide scale for Lantus at HS time PLAN FOR INPATIENT GLYCEMIC CONTROL: * Hold outpatient oral diabetes medications * Basal insulin * Lantus 10-15 units SC BID (15 units only if BSG is 140 mg/dL or more) * Bolus insulin * NovoLog per scale ACHS or Q6hrs while NPO * Goal Range: Low 110 mg/dL - High 140 mg/dL * Correction Factor: 30 mg/dL/unit * Nutritional / Prandial insulin per carb ratio of 1 unit per 9 grams CHO consumed
[2025-08-25 15:10] VITALS: BP 91/54; PULSE 61; RESP 17; TEMP 98.2; O2SAT 94
--- NOTE | 2025-08-25 16:35 | Discharge Summary ---
Discharge Summary Date of Service August 25, 2025 Principal Dx & Hospital Course #1 = Principal Diagnosis (1) Lewy body dementia with psychotic disturbance: (2) Episodes of formed visual hallucinations: (3) Alcohol use disorder in remission: (4) BPH associated with nocturia: (5) Type 2 diabetes mellitus with diabetic neuropathy, unspecified: Plan In summary this is a 70-year-old male who presents with persistent visual carolee lucinations with a large degree of paranoia #Visual hallucinations // Alcohol use disorder in sustained remission // Suspected MCI versus dementia This patient has presented previously with visual hallucinations however based on review of documentation available has never had this degree of paranoia associated with them. He has been evaluated by psychiatry previously, their recommendations have been reviewed with suggestion of the possible Lewy body dementia or another form of cognitive impairment that is associated with these visual hallucinations. There has been no significant improvement or change with high dose thiamine IV therapy. MRI brain was without evidence of pathology. MOCA indicative of moderate dementia. Remaining laboratory assessment is without jamal dence of metabolic causes. - Extended discussion with the patient today regarding diagnosis of Lewy-body dementia; he is adamant that he does not have dementia, as he "knows dementia... my parents had dementia... 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 daily Admission HPI Per Admitting Provider Mr. Sebastian is a 70-year-old male whose active medical conditions include type II diabetes mellitus with peripheral neuropathy and angiopathy, mixed hyperlipidemia, alcohol use disorder in sustained remission, among other chronic medical conditions who presented to the [facility] on 08/22 by EMS for visual hallucinations. At the time my exam the patient is resting comfortably in bed. After introducing myself, the patient asked "why my here? I do not need to be here."; After further questioning regarding the circumstances that led to the patient's presentation to the emergency department the patient reported the following: His upstairs neighbors have a "projector" that can project to 3D objects that he describes as "holograms". He describes that the projector enters into his apartment through a hole in the wall that can be resealed by the projector to prevent it from being discovered by others. He states that "everyone in [place] has these". He states that they projected a woman lying on the floor in his bedroom, for whom he called an ambulance for which led to EMS arrival. Upon EMS arrival, the projector had been "withdrawn into the wall and the hole sealed'. He states that EMS thought that he was "crazy" and brought to the hospital for further evaluation. The patient, upon further questioning, does endorse historical episodes of v isual hallucinations however states that these are different as he knows that the projector exists stating that there is a projector in the hospital as well specifically in the triage emergency department room that projected a "comic strip" whenever he came in. He denies any visual hallucinations occurring outside of episodes associated with the projector. He states that the projected objects do not typically produce sound. He denies any separate independent auditory hallucinations. He has been without any prescribed medications for quite some time, he has difficulty recalling what medications he was prescribed previously. He has not had any recent appointments with his primary care physician's office. He states he eats a regular diet, he is able to get food for himself independently, and take care of things around his apartment without difficulty. Discharge Exam General: Elderly male in no acute distress Vital Signs: Reviewed HEENT: Moist mucous membranes Pulmonary: Symmetric chest wall excursion without restriction; clear to auscultation bilaterally Cardiovascular: Regular rate and rhythm without murmurs, rubs, or gallops; right radial pulse 2+; brisk capillary refill of the lower extremities with no notable lower extremity edema Gastrointestinal: Soft, nontender Musculoskeletal: Mild muscular atrophy that is generalized, no evidence of sarcopenia nor anasarca Psychiatric: Alert and oriented to self, place, time, and circumstance; remains with behavioral indicators and verbal endorsement of suspicion regarding healthcare provider intent; denies any thoughts of harming himself or harming others; emphatic that the "projectors" are real, and that he is not "crazy" Skin: Onychomycosis of the bilateral lower extremities; soft erythematous change with secondary lichenification involving the upper and lower extremities in various locations, not in any pattern involving specific joints or pathognomonic areas Discharge Plan Discharge Items Patient Disposition: Home - Self-Care Reason For Visit: VISUAL HALLUCINATIONS Discharge Diagnosis: Lewy Body dementia with psychosis Condition on Discharge: Fair Activity: Resume your previous activity Non-emergency contact: Primary Care Provider Call non-emergency contact if: you have any medication questions and your symptoms worsen Follow-up/Referrals: Onur Alex CRNP [Primary Care Provider] - 09/02/25 8:20 am Diet: Carb Consistent or DM2 Fluids: 2000ml (8 cups) Addtl Attending Provider Instructions: You were admitted to the [facility] due to concern for your general health by EMS providers who arrived at your request to your home. During your hospitalization you were found to have mild to moderate Lewy Body Dementia; for this condition, to assist with associated symptoms, we started Aripiprazole 5 mg p.o. daily. Please follow up closely with your primary care physician for continued care reagrding this. Furthermore, your Type II Diabetes Mellitus is poorly controlled, primarily consequence of running out of your previously prescribed medications. We have sent refills to your pharmacy to reestablish management of this condition. Thank you for choosing [facility] as your healthcare provider Pending Studies at Discharge: No Stand-Alone Forms: My [facility] Medications and DC Order Prescriptions: New tamsulosin 0.4 mg Capsule 0.4 mg PO DAILY 30 Days Qty: 30 2RF aripiprazole [Abilify] 5 mg Tablet 5 mg PO HS 30 Days Qty: 30 2RF Continued (DME) blood-glucose meter [OneTouch Verio Flex Start] Kit See Rx Instructions .Route Qty: 1 0RF Rx Instructions: As directed (DME) OneTouch Verio test strips Strip See Rx Instructions .Route Qty: 100 0RF Rx Instructions: As directed (DME) lancets 30 gauge misc See Rx Instructions .Route Qty: 100 0RF Rx Instructions: As directed atorvastatin 20 mg tablet 20 mg PO DAILY 30 Days Qty: 90 2RF Rx Instructions: LAST FILLED 11/17/24 FOR 30 TABS/30 DAYS thiamine HCl (vitamin B1) 100 mg Tablet 200 mg PO BID 30 Days Qty: 60 2RF metformin 500 mg tablet extended release 24 hr 1,000 mg PO BID Qty: 60 1RF Rx Instructions: LAST FILLED 11/18/24 FOR 120 TABS/30 DAYS. insulin glargine [Lantus Solostar U-100 Insulin] 100 unit/mL (3 mL) insulin pen 10 unit SUBCUT DIRECTED 30 Days Qty: 0 0RF Rx Instructions: LAST FILLED 09/19/24 FOR 140 DAYS. Discontinued empagliflozin 10 mg tablet 10 mg PO DAILY Qty: 30 0RF Rx Instructions: NO EXT MED HX ON THIS MED. tamsulosin 0.4 mg capsule 0.4 mg PO DAILY Qty: 30 2RF Rx Instructions: LAST FILLED 11/17/24 FOR 30 DAYS/30 TABS. glyburide 5 mg tablet 5 mg PO DAILY Qty: 30 1RF Rx Instructions: NO EXT MED HX ON THIS MED. Discharge Orders: Discharge Order (Routine); Ordered 08/25/25 Ordered By: Pete Adams/Other Patient Handouts: High Blood Sugar (Hyperglycemia), Hypoglycemia (Low Blood Sugar), Managing Type 2 Diabetes Admission Data Admit Date/Time: 08/22/25 15:52 Attending Provider: Pete Cerna Admit Provider: Pete Cerna Primary Care Provider: Onur Alex Other Providers: Pete Cerna Hospital Stay Data Consultations 08/22/25 15:38 ED Decision to Admit Stat 08/23/25 11:41 Consult Behavioral Health Liaison Routine Diagnostic Imagining Performed 08/22/25 13:17 CT angio head w con Stat CT angio neck with con Stat CT head/brain wo con Stat 08/22/25 16:46 MRI Brain [MR brain wo/w con] Stat Pending Results Patient Have Any Pending Studies at Discharge: No Discharge Instructions Given to Patient (Per Discharging Provider) You were admitted to the [facility] due to concern for your general health by EMS providers who arrived at your request to your home. During your hospitalization you were found to have mild to moderate Lewy Body Dementia; for this condition, to assist with associated symptoms, we started Aripiprazole 5 mg p.o. daily. Please follow up closely with your primary care physician for continued care reagrding this. Furthermore, your Type II Diabetes Mellitus is poorly controlled, primarily consequence of running out of your previously prescribed medications. We have sent refills to your pharmacy to reestablish management of this condition. Thank you for choosing [facility] as your healthcare provider Total Time Total Time Spent Total Time Spent (In Minutes): I personally spent 80 minutes in the coordination of today's discharge including bedside counseling, physical exam, medication reconciliation and coordination of transportation with the assistance of case management Coding Level of Care Code 78853 INP/OBS DISCH >30 MIN Diagnoses Moderate Lewy body dementia with psychotic disturbance G31.83; F02.B2 Dementia severity: moderate Episodes of formed visual hallucinations R44.1 Alcohol use disorder in remission F10.91 BPH associated with nocturia N40.1; R35.1 Type 2 diabetes mellitus with diabetic neuropathy, with long-term current use of insulin E11.40; Z79.4 Diabetes mellitus longterm insulin use: with longterm use
== END 2025-08-25 17:03 | disposition home or self-care (01) | DRG 57 ==
LOC: ED 12:11 → 3N 15:52